=== PATIENT | female | born 1930 | race Caucasian/White ===

== ENCOUNTER 2016-05-28 14:04 | Emergency (ER) | payer MEDICARE, OTHER ==
[2016-05-28 14:12] VITALS: BP 189/81
[2016-05-28] MEDS ORDERED: Sodium Chloride 0.9% 2.5 ML Syringe FLUSH PRN (14:23)
[2016-05-28] MEDS ORDERED: Albuterol/Ipratropium 3.0-0.5 MG/3 ML Neb Soln NEB ONE (14:23)
[2016-05-28] MEDS ORDERED: Sodium Chloride 0.9% 10 ML Syringe FLUSH PRN (14:23)
--- NOTE | 2016-05-28 14:26 | EDM.PDOC ---
ED HISTORY OF PRESENT ILLNESS - General Chief Complaint: Respiratory Problem Stated Complaint: COLD SYMPTOMS Time Seen by Provider: 05/28/16 14:14 - History of Present Illness INITIAL COMMENTS - FREE TEXT/NARRATIVE: HISTORY AND PHYSICAL: History of present illness: The patient is an 85-year-old female who follows in our family practice clinic and presents with a two-day history of productive cough, mostly of clear to white phlegm, and sinus drainage. The patient has a history of COPD and is oxygen dependent using 2-3 L of oxygen regularly. Patient has nebulizer machine at home and uses it regularly as well. She also has a history of congestive heart failure and daughter says she had a "heart attack" in the past but does not have the stents. Patient also has a history of hypertension hypothyroidism. Patient used to smoke cigarettes and quit about 8 years ago and states that she' s been feeling more short of breath with this cough but has not had any chest pain or abdominal pain vomiting or diarrhea. The patient says that when she retains fluid she mostly does it in her legs and she has not noted any swelling of her legs or leg asymmetry. The patient states that she has needed to turn off her oxygen more with activity and this cough over the last 2 days. Patient usually sleeps on one pillow at sleep time and has now gone to 2 pillows and has not been resting comfortably due to the persistent cough. Last evening she slept very poorly because she was coughing all night and could not get comfortable. Patient is eating and drinking normally Review of systems: As per history of present illness and below otherwise all systems reviewed and negative. Past medical history: As per history of present illness and as reviewed below otherwise noncontributory. Surgical history: As per history of present illness and as reviewed below otherwise noncontributory. Social history: No reported history of drug or alcohol abuse. Family history: As per history of present illness and as reviewed below otherwise noncontributory. Physical exam: General: Well-developed well-nourished overweight female who is speaking clearly without breathlessness but has a very harsh cough that is heard in the ER. Her O2 sat on my evaluation was 91% on 4 L. HEENT: Atraumatic, normocephalic, pupils reactive, negative for conjunctival pallor or scleral icterus, mucous membranes moist, throat clear, neck supple, nontender, trachea midline. Lungs: Diminished breath sounds throughout all desouza with scattered wheezing Rales and rhonchi more at the bases left greater than right, there is no accessory muscle use or over work of breathing, breath sounds equal bilaterally , chest nontender. Heart: S1S2, regular, negative for clicks, rubs, or JVD. Abdomen: Soft, nondistended, nontender. Negative for masses or hepatosplenomegaly. NABS Pelvis: Stable nontender. Genitourinary: Deferred. Rectal: Deferred. Extremities: Atraumatic, negative for cords or calf pain. Neurovascular unremarkable. No pedal edema or leg asymmetry Neuro: Awake, alert, oriented. Cranial nerves II through XII unremarkable. Cerebellum unremarkable. Motor and sensory unremarkable throughout. Exam nonfocal. Diagnostics: EKG chest x-ray CBC CMP troponin BNP lactic acid Blood cultures if indicated Therapeutics: Duo neb solumedrol Cefdnir I discussed testing results with the patient and daughter at bedside at length. I offered the patient admission for nebulizer treatments IV steroids and pulmonary toilet and she is refusing this at this time because she has a nebulizer machine at home she has oxygen therapy at home and she is an O2 sat machine at home. She has an appointment tomorrow to see Dr. Bennett and I recommended that she has close followup and keep that appointment. I will give her a dose of Solu-Medrol here and a prescription for home for Solu-Medrol and Cefdnir. I've advised patient on reasons to return to the ED and the daughter says that she is going to be staying with her Impression: COPD exacerbation, bronchitis Definitive disposition and diagnosis as appropriate pending reevaluation and review of above. - Related Data Allergies/ADRs: Allergies Allergy/AdvReac Type Severity Reaction Status Date / Time diazepam [From Valium] Allergy Cannot Verified 05/28/16 14:09 Remember levofloxacin [From Levaquin] Allergy Cannot Verified 05/28/16 14:09 Remember Penicillins Allergy Rash Verified 05/28/16 14:09 Sulfa (Sulfonamide Allergy Cannot Verified 05/28/16 14:09 Antibiotics) Remember contrast dye Allergy Cannot Uncoded 05/28/16 14:09 Remember Home Meds: Home Meds Calcium Carbonate/Vitamin D3 [Os-Mil 500+D] 1 tab PO DAILY 01/10/14 [History] Carvedilol [Coreg] 1 tab PO DAILY 01/10/14 [History] Furosemide [Lasix] 80 mg PO DAILY 01/10/14 [History] Levothyroxine Sodium 137 mcg PO DAILY 01/10/14 [History] Losartan Potassium 25 mg PO DAILY 01/10/14 [History] Multivitamin,Stress Formula [Stress Formula] 1 tab PO DAILY 01/10/14 [History] Potassium Chloride 8 meq PO DAILY 01/10/14 [History] Albuterol [Ventolin HFA] 2 inh INH DAILY 05/28/16 [History] Albuterol/Ipratropium [DuoNeb 3.0-0.5 MG/3 ML] 1 ampule INH BID 05/28/16 [ History] Aspirin 1 tab PO DAILY 05/28/16 [History] Past Medical History HEENT History: Reports: Cataract, Impaired vision Cardiovascular History: Reports: Heart Failure Respiratory History: Reports: COPD Gastrointestinal History: Reports: None Genitourinary History: Reports: Renal calculus Musculoskeletal History: Reports: None Psychiatric History: Reports: None Endocrine/Metabolic History: Reports: None Dermatologic History: Reports: None - Past Surgical History HEENT Surgical History: Reports: Cataract surgery GI Surgical History: Reports: Appendectomy, Cholecystectomy Female Surgical History: Reports: None Musculoskeletal Surgical History: Reports: None Social & Family History - Tobacco Use Smoking Status *Q: Former Smoker Years of Tobacco use: 40 Used Tobacco, but Quit: Yes Month Tobacco Last Used: august Second Hand Smoke Exposure: No - Alcohol Use Days Per Week of Alcohol Use: 0 - Recreational Drug Use Recreational Drug Use: No ED ROS GENERAL - Review of Systems Review Of Systems: ROS reveals no pertinent complaints other than HPI. ED EXAM, GENERAL - Physical Exam Exam: See Below (see dictation) Course - Vital Signs Last Recorded V/S: Last Vital Signs Temp 36.6 C 05/28/16 14:10 Pulse 100 05/28/16 14:10 Resp 20 05/28/16 14:10 BP 189/81 H 05/28/16 14:10 Pulse Ox 93 L 05/28/16 14:10 - Orders/Labs/Meds Orders: Active Orders 24 hr Category Date Time Status Cardiac Monitoring [RC] . DIRECTED Care 05/28/16 14:22 Active EKG Documentation Completion [RC] STAT Care 05/28/16 14:22 Active Oxygen Therapy, ED [RC] ASDIRECTED Care 05/28/16 14:22 Active Pulse Oximetry [RC] ASDIRECTED Care 05/28/16 14:22 Active RT Aerosol Therapy [RC] ASDIRECTED Care 05/28/16 14:23 Active Chest 2V [CR] Stat Exams 05/28/16 14:23 Taken Sodium Chloride 0.9% [Saline Flush] Med 05/28/16 14:23 Active 10 ml FLUSH ASDIRECTED PRN Sodium Chloride 0.9% [Saline Flush] Med 05/28/16 14:23 Active 2.5 ml FLUSH ASDIRECTED PRN methylPREDNISolone Sod Succ [Solu-MEDROL] Med 05/28/16 16:01 Once 125 mg IVPUSH ONETIME ONE Saline Lock Insert [OM.PC] Stat Oth 05/28/16 14:22 Ordered Medication Orders Sodium Chloride (Saline Flush) 10 ml FLUSH ASDIRECTED PRN PRN Reason: Keep Vein Open Sodium Chloride (Saline Flush) 2.5 ml FLUSH ASDIRECTED PRN PRN Reason: Keep Vein Open Labs: Laboratory Tests 05/28/16 05/28/16 05/28/16 Range/Units 14:31 14:31 14:31 WBC 4.37 (4.0-11.0) K/uL RBC 4.14 L (4.30-5.90) M/uL Hgb 12.9 (12.0-16.0) g/dL Hct 42.9 (36.0-46.0) % MCV 103.6 H (80.0-98.0) fL MCH 31.2 (27.0-32.0) pg MCHC 30.1 L (31.0-37.0) g/dL RDW Std Deviation 55.0 (28.0-62.0) fl RDW Coeff of Jelly 14 (11.0-15.0) % Plt Count 170 (150-400) K/uL MPV 9.90 (7.40-12.00) fL Neut % (Auto) 68.4 (48.0-80.0) % Lymph % (Auto) 13.5 L (16.0-40.0) % [place] % (Auto) 14.4 (0.0-15.0) % Eos % (Auto) 3.2 (0.0-7.0) % Baso % (Auto) 0.5 (0.0-1.5) % Neut # 3.0 (1.4-5.7) K/uL Lymph # 0.6 (0.6-2.4) K/uL [place] # 0.6 (0.0-0.8) K/uL Eos # 0.1 (0.0-0.7) K/uL Baso # 0.0 (0.0-0.1) K/uL Nucleated RBC % 0.0 /100WBC Nucleated RBCs # 0 K/uL Lactate 0.8 (0.20-2.00) mmol/L Sodium 141 (136-146) mmol/L Potassium 4.3 (3.5-5.1) mmol/L Chloride 98 (98-110) mmol/L Carbon Dioxide 32 H (21-31) mmol/L BUN 35 H (6.0-23.0) mg/dL Creatinine 1.2 (0.6-1.5) mg/dL Est Cr Clr Drug Dosing 31.96 mL/min Estimated GFR (MDRD) 42.9 ml/min Glucose 87 (60-110) mg/dL Calcium 9.2 (8.8-10.8) mg/dL Total Bilirubin 0.4 (0.1-1.5) mg/dL AST 22 (5-40) IU/L ALT 15 (8-54) IU/L Alkaline Phosphatase 70 (40-150) Troponin I (0.0-0.29) NG/ML B-Natriuretic Peptide (<100) PG/ML Total Protein 7.1 (6.0-8.0) g/dL Albumin 3.9 (3.4-4.8) g/dL Globulin 3.2 (2.0-3.5) g/dL Albumin/Globulin Ratio 1.2 L (1.3-2.8) 05/28/16 05/28/16 Range/Units 14:31 14:31 WBC (4.0-11.0) K/uL RBC (4.30-5.90) M/uL Hgb (12.0-16.0) g/dL Hct (36.0-46.0) % MCV (80.0-98.0) fL MCH (27.0-32.0) pg MCHC (31.0-37.0) g/dL RDW Std Deviation (28.0-62.0) fl RDW Coeff of Jelly (11.0-15.0) % Plt Count (150-400) K/uL MPV (7.40-12.00) fL Neut % (Auto) (48.0-80.0) % Lymph % (Auto) (16.0-40.0) % [place] % (Auto) (0.0-15.0) % Eos % (Auto) (0.0-7.0) % Baso % (Auto) (0.0-1.5) % Neut # (1.4-5.7) K/uL Lymph # (0.6-2.4) K/uL [place] # (0.0-0.8) K/uL Eos # (0.0-0.7) K/uL Baso # (0.0-0.1) K/uL Nucleated RBC % /100WBC Nucleated RBCs # K/uL Lactate (0.20-2.00) mmol/L Sodium (136-146) mmol/L Potassium (3.5-5.1) mmol/L Chloride (98-110) mmol/L Carbon Dioxide (21-31) mmol/L BUN (6.0-23.0) mg/dL Creatinine (0.6-1.5) mg/dL Est Cr Clr Drug Dosing mL/min Estimated GFR (MDRD) ml/min Glucose (60-110) mg/dL Calcium (8.8-10.8) mg/dL Total Bilirubin (0.1-1.5) mg/dL AST (5-40) IU/L ALT (8-54) IU/L Alkaline Phosphatase (40-150) Troponin I < 0.10 (0.0-0.29) NG/ML B-Natriuretic Peptide 245 H (<100) PG/ML Total Protein (6.0-8.0) g/dL Albumin (3.4-4.8) g/dL Globulin (2.0-3.5) g/dL Albumin/Globulin Ratio (1.3-2.8) Meds: Medications Generic Name Dose Route Start Last Admin Trade Name Freq PRN Reason Stop Dose Admin Sodium Chloride 10 ml 05/28/16 14:23 Saline Flush FLUSH ASDIRECTED PRN Keep Vein Open Sodium Chloride 2.5 ml 05/28/16 14:23 Saline Flush FLUSH ASDIRECTED PRN Keep Vein Open Discontinued Medications Generic Name Dose Route Start Last Admin Trade Name Freq PRN Reason Stop Dose Admin Albuterol/Ipratropium 3 ml 05/28/16 14:23 05/28/16 14:40 Duoneb 3.0-0.5 Mg/3 Ml NEB 05/28/16 14:24 3 ml ONETIME ONE Administration Departure - Departure Time of Disposition: 16:05 Disposition: Home, Self-Care 01 Condition: good Clinical Impression: COPD exacerbation, Bronchitis Forms: ED Department Discharge Additional Instructions: The following information is given to patients seen in the emergency department who are being discharged to home. This information is to outline your options for follow-up care. We provide all patients seen in our emergency department with a follow-up referral. The need for follow-up, as well as the timing and circumstances, are variable depending upon the specifics of your emergency department visit. If you don't have a primary care physician on staff, we will provide you with a referral. We always advise you to contact your personal physician following an emergency department visit to inform them of the circumstance of the visit and for follow-up with them and/or the need for any referrals to a consulting specialist. The emergency department will also refer you to a specialist when appropriate. This referral assures that you have the opportunity for followup care with a specialist. All of these measure are taken in an effort to provide you with optimal care, which includes your followup. Under all circumstances we always encourage you to contact your private physician who remains a resource for coordinating your care. When calling for followup care, please make the office aware that this follow-up is from your recent emergency room visit. If for any reason you are refused follow-up, please contact the [facility] emergency department at and ask to speak to the emergency department charge nurse. [facility] Primary care- Internal Medicine and Family [address] [address] Please keep your appointment tomorrow with Dr. Bennett and increased her nebulizer treatments q. 4 times a day for the next several days. Please take prednisone as prescribed and antibiotics. Please increase her oxygen as you need to and return to ER as needed and as discussed - My Orders Last 24 Hours: My Active Orders 05/28/16 14:22 Cardiac Monitoring [RC] . DIRECTED EKG Documentation Completion [RC] STAT Oxygen Therapy, ED [RC] ASDIRECTED Pulse Oximetry [RC] ASDIRECTED Saline Lock Insert [OM.PC] Stat 05/28/16 14:23 RT Aerosol Therapy [RC] ASDIRECTED Chest 2V [CR] Stat Sodium Chloride 0.9% [Saline Flush] 10 ml FLUSH ASDIRECTED PRN Sodium Chloride 0.9% [Saline Flush] 2.5 ml FLUSH ASDIRECTED PRN 05/28/16 16:01 methylPREDNISolone Sod Succ [Solu-MEDROL] 125 mg IVPUSH ONETIME ONE - Assessment/Plan Last 24 Hours: My Active Orders 05/28/16 14:22 Cardiac Monitoring [RC] . DIRECTED EKG Documentation Completion [RC] STAT Oxygen Therapy, ED [RC] ASDIRECTED Pulse Oximetry [RC] ASDIRECTED Saline Lock Insert [OM.PC] Stat 05/28/16 14:23 RT Aerosol Therapy [RC] ASDIRECTED Chest 2V [CR] Stat Sodium Chloride 0.9% [Saline Flush] 10 ml FLUSH ASDIRECTED PRN Sodium Chloride 0.9% [Saline Flush] 2.5 ml FLUSH ASDIRECTED PRN 05/28/16 16:01 methylPREDNISolone Sod Succ [Solu-MEDROL] 125 mg IVPUSH ONETIME ONE
[2016-05-28] MEDS ORDERED: methylPREDNISolone Sodium Succinate 125 MG/2 ML SDV IVPUSH ONE (16:01)
[2016-05-28] MEDS ORDERED: Cefdinir 300 MG Cap PO ONE (16:07)
--- NOTE | 2016-05-29 19:32 | CR ---
MEXAM DATE: 05/28/16 PATIENT'S AGE: 85 Patient: DONA VALERA Facility: [place], [place] Site . Site : [id number] Study: XRay Chest [id number] 3:21:59 PM Ordering Physician: Jordan Moran Final Report: INDICATION: Chest pain; cough; shortness of breath. Comparison: chest radiograph March 27, 2016. Technique: Two-view chest. Findings: Stable cardiomegaly. Bibasilar infiltrates stable in appearance. No evidence of CHF. No pneumothorax or pleural effusion. Impression: 1. Bibasilar infiltrates; no interval change. 2. Stable cardiomegaly. Dictated by Ant Mueller MD @ May 28 2016 3:36PM (Electronic Signature) Report Signed by Proxy and Original Signed Document filed in the Medical Record. [email or web address]
== END 2016-05-28 16:30 | disposition home or self-care (01) ==
LOC: MW.ED 14:04
DX: J44.1 Chronic obstructive pulmonary disease with (acute) exacerbation (principal); J40 Bronchitis, not specified as acute or chronic; I50.9 Heart failure, unspecified; Z88.0 Allergy status to penicillin; Z88.1 Allergy status to other antibiotic agents; Z88.2 Allergy status to sulfonamides; Z88.5 Allergy status to narcotic agent; Z91.041 Radiographic dye allergy status; Z79.899 Other long term (current) drug therapy; Z90.49 Acquired absence of other specified parts of digestive tract; Z98.49 Cataract extraction status, unspecified eye; Z87.891 Personal history of nicotine dependence
CPT/HCPCS: 36415; 71020; 80053; 83605; 83880; 84484; 85025; 93005; 94664; 96374; 99284; A9270; J2930

== ENCOUNTER → 2016-05-29 | Outpatient (CLI) | payer MEDICARE, OTHER | LOC: MW.CHFP 08:00 | PROVIDERS: ATTEND Student in an Organized Health Care Education/Training Program | DX: J44.1 Chronic obstructive pulmonary disease with (acute) exacerbation (principal) | CPT/HCPCS: G0463 ==

== ENCOUNTER 2016-06-02 14:35 | Inpatient (IN) | payer MEDICARE, OTHER ==
--- NOTE | 2016-06-02 16:11 | CR ---
EXAMINATION: Two-view chest (PA and Lateral views). HISTORY: Cough, femur. FINDINGS: The trachea is midline. The heart is borderline in size. There are increased infiltrates noted withi n the lung bases on the lateral image, a trace pleural effusion is not excluded. Stable interstitial prominence. Aortic calcifications are noted. Osseous structures appear osteopenic. IMPRESSION: Bibasilar atelectasis and/or infiltrate.
[2016-06-02] MEDS ORDERED: Ondansetron 4 MG Tab.DIS PO PRN (16:59)
[2016-06-02] MEDS ORDERED: oxyCODONE 5 MG Tab PO PRN (16:59)
[2016-06-02] MEDS ORDERED: Acetaminophen 325 MG Tab PO PRN (16:59)
[2016-06-02] MEDS ORDERED: Furosemide 40 MG/4 ML VIAL IVPUSH ONE (17:13)
[2016-06-02] MEDS ORDERED: Calcium Carbonate 500 MG Tab.Chew PO ONE (17:14)
[2016-06-02] MEDS ORDERED: Levofloxacin/Dextrose 5%-Water 750 MG in Premix Bag 1 BAG IV SCH (17:30)
--- NOTE | 2016-06-02 17:54 | PCM.HP ---
H&P History of Present Illness - General Date of Service: 06/02/16 Admit Problem/Dx: Admission Diagnosis/Problem Admission Diagnosis/Problem Pneumonia Source of Information: Patient, Family History Limitations: Reports: No limitations - History of Present Illness Initial Comments - Free Text/Narative: 85 yo female admitted directly from Dr. Bennett clinic on 06/02/16 for hypoxia, influenza B positive, suspected pneumonia with pmh of COPD on home oxygen, ischemic cardiomyopathy, [place] no stents, CHF, Htn, hypothyroid, hyperlipidemia and gout. Patient states that she initially started to feel sick on Sunday05/27/16 with her first symptoms being cough and some shortness of breath. She went to the emergency department on Sunday 05/28 and was given a dose of Solu-Medrol and Cefdnir. Patient denied admission at that time for COPD exacerbation and wanted to follow-up with Dr. Bennett on Sunday for her regular appointment. Patient saw Dr. Bennett on Sunday and instructed her to continue the ED instructions and return to clinic on Sunday06/01/16 if she was not doing better. Patient states that she used her home nebulizer and took the Cefdnir but it caused urinary retention even with her home lasix. Her cough and congestion became worse over the week so she scheduled to see Dr. Bennett today. In clinic patient was found to be hypoxic 88% on 3L of oxygen. CXR showed bibasilar atelectasis and/or infiltrate. Patient also tested positive for influenza B. Patient also noted some hematuria so UA and UC were collected. Secondary to hypoxia and suspected pneumonia Dr. Bennett felt patient needed hospitalization for treatement. Patient was afebrile but tachycardic, there was no leukocytosis but BUN and Cr were elevated to 53 and 1.9 respectively. UA was negative for infection but did show large occult blood. Patient was directly admitted for hypoxia, suspected pneumonia, influenza B, suspected COPD exacerbation and mild CHF exacerbation. - Related Data Allergies/Adverse Reactions: Allergies Allergy/AdvReac Type Severity Reaction Status Date / Time diazepam [From Valium] Allergy Cannot Verified 05/28/16 14:09 Remember levofloxacin [From Levaquin] Allergy Cannot Verified 05/28/16 14:09 Remember Penicillins Allergy Rash Verified 05/28/16 14:09 Sulfa (Sulfonamide Allergy Cannot Verified 05/28/16 14:09 Antibiotics) Remember contrast dye Allergy Cannot Uncoded 05/28/16 14:09 Remember Home Medications: Home Meds Calcium Carbonate/Vitamin D3 [Os-Mil 500+D] 1 tab PO DAILY 01/10/14 [History] Carvedilol [Coreg] 1 tab PO DAILY 01/10/14 [History] Furosemide [Lasix] 80 mg PO DAILY 01/10/14 [History] Levothyroxine Sodium 137 mcg PO DAILY 01/10/14 [History] Losartan Potassium 25 mg PO DAILY 01/10/14 [History] Multivitamin,Stress Formula [Stress Formula] 1 tab PO DAILY 01/10/14 [History] Potassium Chloride 8 meq PO DAILY 01/10/14 [History] Albuterol [Ventolin HFA] 2 inh INH DAILY 05/28/16 [History] Albuterol/Ipratropium [DuoNeb 3.0-0.5 MG/3 ML] 1 ampule INH BID 05/28/16 [ History] Aspirin 1 tab PO DAILY 05/28/16 [History] Past Medical History HEENT History: Reports: Cataract, Impaired vision Cardiovascular History: Reports: Heart Failure Respiratory History: Reports: COPD Gastrointestinal History: Reports: None Genitourinary History: Reports: Renal calculus [employer] History: Reports: Musculoskeletal History: Reports: None Psychiatric History: Reports: None Endocrine/Metabolic History: Reports: None Dermatologic History: Reports: None - Past Surgical History HEENT Surgical History: Reports: Cataract surgery GI Surgical History: Reports: Appendectomy, Cholecystectomy Female Surgical History: Reports: None Musculoskeletal Surgical History: Reports: None Social & Family History - Family History Family Medical History: Noncontributory - Tobacco Use Smoking Status *Q: Former Smoker Years of Tobacco use: 40 Used Tobacco, but Quit: Yes Month Tobacco Last Used: august Second Hand Smoke Exposure: No - Caffeine Use Caffeine Use: Reports: Coffee - Alcohol Use Days Per Week of Alcohol Use: 0 - Recreational Drug Use Recreational Drug Use: No H&P Review of Systems - Review of Systems: Review Of Systems: See Below General: Reports: chills, malaise, weakness, fatigue. Denies: fever HEENT: Reports: rhinitis, sinus congestion. Denies: sore throat Pulmonary: Reports: Shortness of Breath, Wheezing, Cough, Sputum. Denies: Hemoptysis Cardiovascular: Reports: edema. Denies: chest pain, palpitations Gastrointestinal: Reports: Diarrhea. Denies: Abdominal pain, Constipation, Hematochezia, Melena Genitourinary: Reports: hematuria. Denies: dysuria Musculoskeletal: Denies: neck pain, leg pain Skin: Denies: cyanosis, rash Psychiatric: Denies: confusion Neurological: Denies: Confusion, Dizziness Hematologic/Lymphatic: Reports: anemia Exam - Exam Exam: See Below - Vital Signs Vital Signs: Last Vital Signs Temp 37.3 C 06/02/16 16:48 Pulse 105 H 06/02/16 16:48 Resp 22 H 06/02/16 16:48 BP 139/63 06/02/16 16:48 Pulse Ox 91 L 06/02/16 17:05 Weight: 86.545 kg - Exam Quality Assessment: supplemental oxygen, DVT prophylaxis General: alert, oriented, cooperative HEENT: Conjunctiva clear, EACs clear, EOMI, Hearing intact, Mucosa moist & pink , Nares patent, Normal nasal septum, Posterior pharynx clear, PERRLA Neck: supple, trachea midline, 2 Lungs: Normal respiratory effort, Decreased breath sounds, Crackles, Rales, Wheezing Cardiovascular: regular rate, regular rhythm, normal S1, normal S2 Abdomen: normal bowel sounds, soft. No: guarding, rigidity, rebound, tenderness Back Exam: normal inspection Extremities: edema (+2 pitting edema to 2 inches above ankles). No: calf tenderness Peripheral Pulses: 2+: radial (L), radial (R), posterior tibial (L), posterior tibial (R), dorsalis pedis (L), dorsalis pedis (R) Skin: warm, dry, intact Neurological: cranial nerves intact Neuro Extensive - Mental Status: alert, oriented x3, normal mood/affect, normal cognition Psychiatric: alert, normal affect, normal mood - Patient Data Lab Results last 24 hrs: Laboratory Results - last 24 hr 06/02/16 06/02/16 06/02/16 Range/Units 15:02 15:02 15:02 WBC 7.46 (4.0-11.0) K/uL RBC 4.00 L (4.30-5.90) M/uL Hgb 12.3 (12.0-16.0) g/dL Hct 40.8 (36.0-46.0) % MCV 102.0 H (80.0-98.0) fL MCH 30.8 (27.0-32.0) pg MCHC 30.1 L (31.0-37.0) g/dL RDW Std Deviation 53.9 (28.0-62.0) fl RDW Coeff of Jelly 14 (11.0-15.0) % Plt Count 152 (150-400) K/uL MPV 9.80 (7.40-12.00) fL Neut % (Auto) 83.0 H (48.0-80.0) % Lymph % (Auto) 7.8 L (16.0-40.0) % [place] % (Auto) 9.0 (0.0-15.0) % Eos % (Auto) 0.1 (0.0-7.0) % Baso % (Auto) 0.1 (0.0-1.5) % Neut # (Auto) 6.2 H (1.4-5.7) K/uL Lymph # (Auto) 0.6 (0.6-2.4) K/uL [place] # (Auto) 0.7 (0.0-0.8) K/uL Eos # (Auto) 0.0 (0.0-0.7) K/uL Baso # (Auto) 0.0 (0.0-0.1) K/uL Nucleated RBC % 0.0 /100WBC Nucleated RBCs # 0 K/uL Sodium 138 (136-146) mmol/L Potassium 4.4 (3.5-5.1) mmol/L Chloride 94 L (98-110) mmol/L Carbon Dioxide 31 (21-31) mmol/L BUN 53 H (6.0-23.0) mg/dL Creatinine 1.9 H (0.6-1.5) mg/dL Est Cr Clr Drug Dosing 20.19 mL/min Estimated GFR (MDRD) 25.2 ml/min Glucose 106 (60-110) mg/dL Calcium 8.3 L (8.8-10.8) mg/dL Urine Color YELLOW Urine Appearance SLT CLOUDY Urine pH 5.0 (5.0-8.0) Ur Specific [place] 1.010 (1.001-1.035) Urine Protein TRACE (NEGATIVE) mg/dL Urine Glucose (UA) NEGATIVE (NEGATIVE) mg/dL Urine Ketones NEGATIVE (NEGATIVE) mg/dL Urine Occult Blood LARGE H (NEGATIVE) Urine Nitrite NEGATIVE (NEGATIVE) Urine Bilirubin NEGATIVE (NEGATIVE) Urine Urobilinogen 0.2 (<2.0) EU/dL Ur Leukocyte Esterase NEGATIVE (NEGATIVE) Urine RBC 80-100 (0-2/HPF) Urine WBC 0-2 (0-5/HPF) Ur Epithelial Cells RARE (NONE-FEW) Urine Bacteria RARE (NEGATIVE) Result Diagrams: 06/02/16 15:02 06/02/16 15:02 Luis Results last 24 hrs: Microbiology 06/02/16 14:47 Influenza Type A Antigen Screen - Final Nasopharyngeal Swab NEGATIVE INFLUENZA A VIRUS AG Influenza Type B Antigen Screen - Final Positive Influenza B Ag *Q Meaningful Use (ADM) - VTE *Q VTE Criteria *Q: - Stroke *Q Stroke Criteria *Q: - AMI *Q AMI Criteria *Q: - Problem List (1) Pneumonia SNOMED Code(s): 341122832 ICD Code: J18.9 - PNEUMONIA, UNSPECIFIED ORGANISM Status: Acute Priority : High Current Visit: Yes Qualifiers: Pneumonia type: due to unspecified organism Laterality: left Lung location: lower lobe of lung Qualified Code(s): J18.1 - Lobar pneumonia, unspecified organism (2) Influenza B SNOMED Code(s): 93711830 ICD Code: J10.1 - FLU DUE TO OTH IDENT INFLUENZA VIRUS W OTH RESP MANIFEST Status: Acute Priority: High Current Visit: Yes (3) Acute renal failure SNOMED Code(s): 27804861 ICD Code: N17.9 - ACUTE KIDNEY FAILURE, UNSPECIFIED Status: Acute Priority: High Current Visit: Yes Qualifiers: Acute renal failure type: unspecified Qualified Code(s): N17.9 - Acute kidney failure, unspecified (4) CHF (congestive heart failure) SNOMED Code(s): 79451746 ICD Code: I50.9 - HEART FAILURE, UNSPECIFIED Status: Chronic Priority: Medium Current Visit: Yes Qualifiers: Congestive heart failure type: unspecified congestive heart failure type Congestive heart failure chronicity: acute on chronic Qualified Code(s): I50.9 - Heart failure, unspecified (5) COPD (chronic obstructive pulmonary disease) with emphysema SNOMED Code(s): 50920372 ICD Code: J43.9 - EMPHYSEMA, UNSPECIFIED Status: Chronic Priority: High Current Visit: Yes Qualifiers: Emphysema type: unspecified Qualified Code(s): J43.9 - Emphysema, unspecified (6) Hypothyroid SNOMED Code(s): 77966233 ICD Code: E03.9 - HYPOTHYROIDISM, UNSPECIFIED Status: Chronic Priority: Medium Current Visit: Yes Qualifiers: Hypothyroidism type: unspecified Qualified Code(s): E03.9 - Hypothyroidism , unspecified Problem List Initiated/Reviewed/Updated: Yes Orders Last 24hrs: Active Orders 24 hr Category Date Time Status Patient Status [ADT] Routine ADT 06/02/16 16:59 Active Antiembolic Devices [RC] Q4H Care 06/02/16 17:06 Active Blood Glucose Check, Bedside [RC] TIDAC Care 06/02/16 16:59 Inactive Daily Weight [Height and Weight] [RC] DAILY Care 06/02/16 17:12 Active Oxygen Therapy [RC] PRN Care 06/02/16 16:59 Active Pulse Oximetry [RC] CONTINUOUS Care 06/02/16 17:05 Active RT Aerosol Therapy [RC] ASDIRECTED Care 06/02/16 17:07 Active Up With Assistance [RC] ASDIRECTED Care 06/02/16 16:59 Active VTE/DVT Education [RC] PER UNIT ROUTINE Care 06/02/16 16:59 Active Vital Signs [RC] Q4H Care 06/02/16 16:59 Active Heart Healthy Diet [DIET] Diet 06/02/16 Dinner Active BASIC METABOLIC PANEL,BMP [CHEM] DAILY Lab 06/04/16 05:00 Ordered BASIC METABOLIC PANEL,BMP [CHEM] DAILY Lab 06/05/16 05:00 Ordered BASIC METABOLIC PANEL,BMP [CHEM] DAILY Lab 06/06/16 05:00 Ordered BASIC METABOLIC PANEL,BMP [CHEM] DAILY Lab 06/07/16 05:00 Ordered CBC WITH AUTO DIFF [HEME] DAILY Lab 06/03/16 05:00 Ordered CBC WITH AUTO DIFF [HEME] DAILY Lab 06/04/16 05:00 Ordered CBC WITH AUTO DIFF [HEME] DAILY Lab 06/05/16 05:00 Ordered CBC WITH AUTO DIFF [HEME] DAILY Lab 06/06/16 05:00 Ordered CBC WITH AUTO DIFF [HEME] DAILY Lab 06/07/16 05:00 Ordered COMPREHENSIVE METABOLIC PN,CMP [CHEM] AM Lab 06/03/16 05:11 Ordered CULTURE BLOOD [BC] Stat Lab 06/02/16 17:18 Ordered CULTURE BLOOD [BC] Stat Lab 06/02/16 17:18 Ordered CULTURE SPUTUM + SMEAR [RM] Routine Lab 06/02/16 16:58 Uncollected CULTURE URINE [RM] Routine Lab 06/02/16 15:02 Received MAGNESIUM [CHEM] AM Lab 06/03/16 05:11 Ordered PHOSPHORUS [CHEM] AM Lab 06/03/16 05:11 Ordered Acetaminophen [Tylenol] Med 06/02/16 16:59 Active 650 mg PO Q4H PRN Albuterol/Ipratropium [DuoNeb 3.0-0.5 MG/3 ML] Med 06/02/16 16:59 Active 3 ml NEB Q4HRRT PRN Heparin Sodium Med 06/02/16 17:00 Active 5,000 units SUBCUT Q12H Levofloxacin/Dextrose 5%-Water [Levaquin in D5W 750 MG/ Med 06/02/16 17:30 Active 150 ML] 750 mg Premix Bag 1 bag IV Q24H Ondansetron [Zofran ODT] Med 06/02/16 16:59 Active 4 mg PO Q4H PRN Oseltamivir [Tamiflu] Med 06/02/16 17:00 Active 75 mg PO BID methylPREDNISolone Sod Succ [Solu-MEDROL] Med 06/02/16 17:00 Active 125 mg IVPUSH Q8H oxyCODONE Med 06/02/16 16:59 Active 5 mg PO Q4H PRN Blood Culture x2 Reflex Set [OM.PC] Stat Oth 06/02/16 17:17 Ordered Sequential Compression Device [OM.PC] Per Unit Routine Oth 06/02/16 17:05 Ordered Resuscitation Status Routine Resus Stat 06/02/16 16:59 Ordered Medication Orders Acetaminophen (Tylenol) 650 mg PO Q4H PRN PRN Reason: Pain (Mild 1-3)/fever Albuterol/Ipratropium (Duoneb 3.0-0.5 Mg/3 Ml) 3 ml NEB Q4HRRT PRN PRN Reason: Shortness Of Breath/wheezing Heparin Sodium (Porcine) (Heparin Sodium) 5,000 units SUBCUT Q12H [facility] Levofloxacin/Dextrose 750 mg/ (Premix) 150 mls @ 100 mls/hr IV Q24H [facility] Methylprednisolone Sodium Succinate (Solu-Medrol) 125 mg IVPUSH Q8H [facility] Ondansetron HCl (Zofran Odt) 4 mg PO Q4H PRN PRN Reason: nausea, able to take PO Oseltamivir Phosphate (Tamiflu) 75 mg PO BID [facility] Oxycodone HCl (Oxycodone) 5 mg PO Q4H PRN PRN Reason: Pain (moderate 4-6) Assessment/Plan Comment:: 85 yo female admitted 06/02/16 for hypoxia secondary to suspected pneumonia vs CHF exacerbation and influenza B with pmh of COPD oxygen dependent, CHF, Htn, ischemic cardiomyopathy and hypothyroid. Hypoxia: Looking at CXR this looks to be more of a CHF exacerbation vs pneumonia but with history will empirically treat for CAP with Levaquin and get sputum culture. There is no leukocytosis or fever. She is O2 dependent on 3L at home and is sating 91 % on 4 L on exam. Will give 40 Lasix IV now and monitor daily weights as I believe patient is volume overloaded at this time. Influenza B: Positive will give Tamiflu today 75 mg PO BID x 5 days. CHF: As above on exam seems volume overloaded. Home Lasix is 80 mg PO q day. Will give 40 Lasix now and plan for 40 IV BID monitoring daily weights. COPD: Some exacerbation secondary to flu. Exam diffuse decrease breath sounds. Start duo-nebs and Solumedrol. Bedside spirometry and flutter valve. Hypothyroid: Stable restart home meds. Hematuria: UA negative culture pending. VTE: Heparin and SCD.
[2016-06-02] MEDS: Oseltamivir 75 MG Cap PO SCH ×2 (18:03→22:04)
[2016-06-02] MEDS: methylPREDNISolone Sodium Succinate 125 MG/2 ML SDV IVPUSH SCH (18:04)
[2016-06-02] MEDS: Heparin Sodium 5,000 Units/ML Vial SUBCUT SCH (18:05)
[2016-06-02] MEDS: Albuterol/Ipratropium 3.0-0.5 MG/3 ML Neb Soln NEB PRN ×2 (18:31→21:18)
[2016-06-02] MEDS: cefTRIAXone 1 GM in Premix Bag 1 BAG IV SCH (19:10)
[2016-06-02] MEDS: Azithromycin 500 MG in Sodium Chloride 0.9% 250 ML IV SCH (20:00)
[2016-06-03] MEDS: methylPREDNISolone Sodium Succinate 125 MG/2 ML SDV IVPUSH SCH ×3 (00:56→16:22)
[2016-06-03] MEDS: Albuterol/Ipratropium 3.0-0.5 MG/3 ML Neb Soln NEB PRN ×4 (01:08→21:02)
[2016-06-03] MEDS: Heparin Sodium 5,000 Units/ML Vial SUBCUT SCH (05:11)
[2016-06-03 06:46] LABS: CHLORIDE,CL 96 mmol/L (98-110); SODIUM,NA 138 mmol/L (136-146)
[2016-06-03] MEDS ORDERED: Furosemide 40 MG/4 ML VIAL IVPUSH SCH (08:00)
[2016-06-03] MEDS: Oseltamivir 75 MG Cap PO SCH (09:31)
--- NOTE | 2016-06-03 14:18 | PCM.PN ---
- General Info Date of Service: 06/03/16 Admission Dx/Problem (Free Text): she is feeling improved. - Patient Data Vitals - most recent: Last Vital Signs Temp 98.7 F 06/03/16 11:42 Pulse 107 H 06/03/16 11:42 Resp 18 06/03/16 11:42 BP 135/62 06/03/16 11:42 Pulse Ox 90 L 06/03/16 11:42 Weight - most recent: 87.5 kg I&O - last 24 hours: Intake & Output 06/02/16 06/03/16 06/03/16 22:59 06:59 14:59 Intake Total 450 300 Output Total 1400 Balance 450 -1100 Lab Results last 24 hrs: Laboratory Results - last 24 hr 06/02/16 06/02/16 06/02/16 Range/Units 15:02 15:02 15:02 WBC 7.46 (4.0-11.0) K/uL RBC 4.00 L (4.30-5.90) M/uL Hgb 12.3 (12.0-16.0) g/dL Hct 40.8 (36.0-46.0) % MCV 102.0 H (80.0-98.0) fL MCH 30.8 (27.0-32.0) pg MCHC 30.1 L (31.0-37.0) g/dL RDW Std Deviation 53.9 (28.0-62.0) fl RDW Coeff of Jelly 14 (11.0-15.0) % Plt Count 152 (150-400) K/uL MPV 9.80 (7.40-12.00) fL Neut % (Auto) 83.0 H (48.0-80.0) % Lymph % (Auto) 7.8 L (16.0-40.0) % [place] % (Auto) 9.0 (0.0-15.0) % Eos % (Auto) 0.1 (0.0-7.0) % Baso % (Auto) 0.1 (0.0-1.5) % Neut # (Auto) 6.2 H (1.4-5.7) K/uL Lymph # (Auto) 0.6 (0.6-2.4) K/uL [place] # (Auto) 0.7 (0.0-0.8) K/uL Eos # (Auto) 0.0 (0.0-0.7) K/uL Baso # (Auto) 0.0 (0.0-0.1) K/uL Nucleated RBC % 0.0 /100WBC Nucleated RBCs # 0 K/uL Sodium 138 (136-146) mmol/L Potassium 4.4 (3.5-5.1) mmol/L Chloride 94 L (98-110) mmol/L Carbon Dioxide 31 (21-31) mmol/L BUN 53 H (6.0-23.0) mg/dL Creatinine 1.9 H (0.6-1.5) mg/dL Est Cr Clr Drug Dosing 20.19 mL/min Estimated GFR (MDRD) 25.2 ml/min Glucose 106 (60-110) mg/dL Calcium 8.3 L (8.8-10.8) mg/dL Phosphorus (2.4-4.7) mg/dL Magnesium (1.5-2.3) mEq/L Total Bilirubin (0.1-1.5) mg/dL AST (5-40) IU/L ALT (8-54) IU/L Alkaline Phosphatase (40-150) Total Protein (6.0-8.0) g/dL Albumin (3.4-4.8) g/dL Globulin (2.0-3.5) g/dL Albumin/Globulin Ratio (1.3-2.8) Urine Color YELLOW Urine Appearance SLT CLOUDY Urine pH 5.0 (5.0-8.0) Ur Specific [place] 1.010 (1.001-1.035) Urine Protein TRACE (NEGATIVE) mg/dL Urine Glucose (UA) NEGATIVE (NEGATIVE) mg/dL Urine Ketones NEGATIVE (NEGATIVE) mg/dL Urine Occult Blood LARGE H (NEGATIVE) Urine Nitrite NEGATIVE (NEGATIVE) Urine Bilirubin NEGATIVE (NEGATIVE) Urine Urobilinogen 0.2 (<2.0) EU/dL Ur Leukocyte Esterase NEGATIVE (NEGATIVE) Urine RBC 80-100 (0-2/HPF) Urine WBC 0-2 (0-5/HPF) Ur Epithelial Cells RARE (NONE-FEW) Urine Bacteria RARE (NEGATIVE) 06/03/16 06/03/16 Range/Units 06:05 06:05 WBC 5.65 (4.0-11.0) K/uL RBC 3.75 L (4.30-5.90) M/uL Hgb 11.5 L (12.0-16.0) g/dL Hct 37.9 (36.0-46.0) % MCV 101.1 H (80.0-98.0) fL MCH 30.7 (27.0-32.0) pg MCHC 30.3 L (31.0-37.0) g/dL RDW Std Deviation 52.6 (28.0-62.0) fl RDW Coeff of Jelly 14 (11.0-15.0) % Plt Count 175 (150-400) K/uL MPV 10.10 (7.40-12.00) fL Neut % (Auto) 96.3 H (48.0-80.0) % Lymph % (Auto) 3.0 L (16.0-40.0) % [place] % (Auto) 0.7 (0.0-15.0) % Eos % (Auto) 0.0 (0.0-7.0) % Baso % (Auto) 0.0 (0.0-1.5) % Neut # (Auto) 5.4 (1.4-5.7) K/uL Lymph # (Auto) 0.2 L (0.6-2.4) K/uL [place] # (Auto) 0.0 (0.0-0.8) K/uL Eos # (Auto) 0.0 (0.0-0.7) K/uL Baso # (Auto) 0.0 (0.0-0.1) K/uL Nucleated RBC % 0.0 /100WBC Nucleated RBCs # 0 K/uL Sodium 138 (136-146) mmol/L Potassium 3.9 (3.5-5.1) mmol/L Chloride 96 L (98-110) mmol/L Carbon Dioxide 30 (21-31) mmol/L BUN 53 H (6.0-23.0) mg/dL Creatinine 1.7 H (0.6-1.5) mg/dL Est Cr Clr Drug Dosing TNP mL/min Estimated GFR (MDRD) 28.7 ml/min Glucose 194 H (60-110) mg/dL Calcium 8.2 L (8.8-10.8) mg/dL Phosphorus 3.8 (2.4-4.7) mg/dL Magnesium 1.4 L (1.5-2.3) mEq/L Total Bilirubin 0.2 (0.1-1.5) mg/dL AST 18 (5-40) IU/L ALT 15 (8-54) IU/L Alkaline Phosphatase 65 (40-150) Total Protein 5.8 L (6.0-8.0) g/dL Albumin 3.3 L (3.4-4.8) g/dL Globulin 2.5 (2.0-3.5) g/dL Albumin/Globulin Ratio 1.3 (1.3-2.8) Urine Color Urine Appearance Urine pH (5.0-8.0) Ur Specific [place] (1.001-1.035) Urine Protein (NEGATIVE) mg/dL Urine Glucose (UA) (NEGATIVE) mg/dL Urine Ketones (NEGATIVE) mg/dL Urine Occult Blood (NEGATIVE) Urine Nitrite (NEGATIVE) Urine Bilirubin (NEGATIVE) Urine Urobilinogen (<2.0) EU/dL Ur Leukocyte Esterase (NEGATIVE) Urine RBC (0-2/HPF) Urine WBC (0-5/HPF) Ur Epithelial Cells (NONE-FEW) Urine Bacteria (NEGATIVE) Luis Results last 24 hrs: Microbiology 06/02/16 18:41 Gram Stain - Preliminary Sputum - Expectorated 06/02/16 14:47 Influenza Type A Antigen Screen - Final Nasopharyngeal Swab NEGATIVE INFLUENZA A VIRUS AG Influenza Type B Antigen Screen - Final Positive Influenza B Ag Med Orders - Current: Current Medications Acetaminophen (Tylenol) 650 mg PO Q4H PRN PRN Reason: Pain (Mild 1-3)/fever Albuterol/Ipratropium (Duoneb 3.0-0.5 Mg/3 Ml) 3 ml NEB Q4HRRT PRN PRN Reason: Shortness Of Breath/wheezing Last Admin: 06/03/16 09:52 Dose: 3 ml Ceftriaxone Sodium/Dextrose 1 (gm/ Premix) 50 mls @ 100 mls/hr IV Q24H [facility] Last Admin: 06/02/16 19:10 Dose: 100 mls/hr Azithromycin 500 mg/ Sodium (Chloride) 250 mls @ 250 mls/hr IV Q24H [facility] Last Admin: 06/02/16 20:00 Dose: 250 mls/hr Methylprednisolone Sodium Succinate (Solu-Medrol) 125 mg IVPUSH Q8H [facility] Last Admin: 06/03/16 09:31 Dose: 125 mg Ondansetron HCl (Zofran Odt) 4 mg PO Q4H PRN PRN Reason: nausea, able to take PO Oseltamivir Phosphate (Oseltamivir Phosphate) 30 mg PO DAILY [facility] Discontinued Medications Calcium Carbonate/Glycine (Tums) 1,000 mg PO ONETIME ONE Stop: 06/02/16 17:15 Last Admin: 06/02/16 18:03 Dose: 1,000 mg Furosemide (Lasix) 40 mg IVPUSH NOW ONE Stop: 06/02/16 17:14 Last Admin: 06/02/16 18:04 Dose: 40 mg Furosemide (Lasix) 40 mg IVPUSH BIDDIURETIC [facility] Heparin Sodium (Porcine) (Heparin Sodium) 5,000 units SUBCUT Q12H [facility] Last Admin: 06/03/16 05:11 Dose: 5,000 units Levofloxacin/Dextrose 750 mg/ (Premix) 150 mls @ 100 mls/hr IV Q24H [facility] Last Admin: 06/02/16 18:19 Dose: 100 mls/hr Oseltamivir Phosphate (Tamiflu) 75 mg PO BID [facility] Last Admin: 06/03/16 09:31 Dose: 75 mg Oxycodone HCl (Oxycodone) 5 mg PO Q4H PRN PRN Reason: Pain (moderate 4-6) - Exam General: alert, oriented, cooperative Lungs: Wheezing Cardiovascular: Regular Rate, Regular Rhythm - Problem List & Annotations (1) Influenza B SNOMED Code(s): 72567438 Code(s): J10.1 - FLU DUE TO OTH IDENT INFLUENZA VIRUS W OTH RESP MANIFEST Status: Acute Priority: High Current Visit: Yes (2) Pneumonia SNOMED Code(s): 084895412 Code(s): J18.9 - PNEUMONIA, UNSPECIFIED ORGANISM Status: Acute Priority: High Current Visit: Yes Qualifiers: Pneumonia type: due to unspecified organism Laterality: left Lung location: lower lobe of lung Qualified Code(s): J18.1 - Lobar pneumonia, unspecified organism (3) COPD (chronic obstructive pulmonary disease) with emphysema SNOMED Code(s): 96241277 Code(s): J43.9 - EMPHYSEMA, UNSPECIFIED Status: Chronic Priority: High Current Visit: Yes Qualifiers: Emphysema type: unspecified Qualified Code(s): J43.9 - Emphysema, unspecified - Problem List Review Problem List Initiated/Reviewed/Updated: Yes - Assessment Assessment:: 06/03/2016 she feels improved anticipated discharge on Sunday or Sunday. Melba Davila MD - Plan Plan:: 85 yo female admitted 06/02/16 for hypoxia secondary to suspected pneumonia vs CHF exacerbation and influenza B with pmh of COPD oxygen dependent, CHF, Htn, ischemic cardiomyopathy and hypothyroid. Hypoxia: Looking at CXR this looks to be more of a CHF exacerbation vs pneumonia but with history will empirically treat for CAP with Levaquin and get sputum culture. There is no leukocytosis or fever. She is O2 dependent on 3L at home and is sating 91 % on 4 L on exam. Will give 40 Lasix IV now and monitor daily weights as I believe patient is volume overloaded at this time. Influenza B: Positive will give Tamiflu today 75 mg PO BID x 5 days. CHF: As above on exam seems volume overloaded. Home Lasix is 80 mg PO q day. Will give 40 Lasix now and plan for 40 IV BID monitoring daily weights. COPD: Some exacerbation secondary to flu. Exam diffuse decrease breath sounds. Start duo-nebs and Solumedrol. Bedside spirometry and flutter valve. Hypothyroid: Stable restart home meds. Hematuria: UA negative culture pending. VTE: Heparin and SCD.
[2016-06-03] MEDS ORDERED: Benzonatate 100 MG Cap PO PRN (14:44)
[2016-06-03] MEDS ORDERED: Furosemide 40 MG Tab PO SCH (14:45)
[2016-06-03] MEDS ORDERED: Acetaminophen 325 MG Tab PO PRN (14:46)
[2016-06-03] MEDS: Carvedilol 3.125 MG Tab PO SCH ×3 (16:22→21:42)
[2016-06-03] MEDS: cefTRIAXone 1 GM in Premix Bag 1 BAG IV SCH (18:06)
[2016-06-03] MEDS: Azithromycin 500 MG in Sodium Chloride 0.9% 250 ML IV SCH (18:10)
[2016-06-04] MEDS: methylPREDNISolone Sodium Succinate 125 MG/2 ML SDV IVPUSH SCH ×3 (01:17→16:42)
[2016-06-04] MEDS ORDERED: Losartan 50 MG Tab ONE (03:42)
[2016-06-04] MEDS: Losartan 50 MG Tab PO SCH ×2 (03:48→08:36)
[2016-06-04] MEDS: Levothyroxine 112 MCG Tab PO SCH (07:49)
[2016-06-04] MEDS: Aspirin 81 MG Tab.Chew PO SCH (08:36)
[2016-06-04] MEDS: Multivitamins with Iron/Calcium/Folic Acid/Minerals Tab PO SCH (08:36)
[2016-06-04] MEDS: Oseltamivir Phosphate 30 MG Capsule PO SCH (08:52)
[2016-06-04] MEDS: Potassium Chloride 8 MEQ Tab.ER PO SCH (08:52)
[2016-06-04] MEDS ORDERED: Furosemide 40 MG Tab PO SCH (09:55)
[2016-06-04] MEDS: Allopurinol 100 MG Tab PO SCH (11:37)
--- NOTE | 2016-06-04 13:41 | PCM.PN ---
- General Info Date of Service: 06/04/16 - Review of Systems Systems Review Comment:: she is still very short of breath with activity. - Patient Data Vitals - most recent: Last Vital Signs Temp 97.1 F 06/04/16 11:15 Pulse 89 06/04/16 11:15 Resp 20 06/04/16 11:15 BP 177/79 H 06/04/16 11:15 Pulse Ox 90 L 06/04/16 11:15 Weight - most recent: 87.5 kg I&O - last 24 hours: Intake & Output 06/03/16 06/04/16 06/04/16 22:59 06:59 14:59 Intake Total 790 Output Total 900 Balance -110 Lab Results last 24 hrs: Laboratory Results - last 24 hr 06/04/16 06/04/16 Range/Units 05:28 05:28 WBC 6.31 (4.0-11.0) K/uL RBC 3.65 L (4.30-5.90) M/uL Hgb 11.1 L (12.0-16.0) g/dL Hct 36.7 (36.0-46.0) % MCV 100.5 H (80.0-98.0) fL MCH 30.4 (27.0-32.0) pg MCHC 30.2 L (31.0-37.0) g/dL RDW Std Deviation 52.3 (28.0-62.0) fl RDW Coeff of Jelly 14 (11.0-15.0) % Plt Count 215 (150-400) K/uL MPV 9.90 (7.40-12.00) fL Neut % (Auto) 92.9 H (48.0-80.0) % Lymph % (Auto) 4.1 L (16.0-40.0) % [place] % (Auto) 3.0 (0.0-15.0) % Eos % (Auto) 0.0 (0.0-7.0) % Baso % (Auto) 0.0 (0.0-1.5) % Neut # (Auto) 5.9 H (1.4-5.7) K/uL Lymph # (Auto) 0.3 L (0.6-2.4) K/uL [place] # (Auto) 0.2 (0.0-0.8) K/uL Eos # (Auto) 0.0 (0.0-0.7) K/uL Baso # (Auto) 0.0 (0.0-0.1) K/uL Nucleated RBC % 0.0 /100WBC Nucleated RBCs # 0 K/uL Sodium 140 (136-146) mmol/L Potassium 4.7 (3.5-5.1) mmol/L Chloride 97 L (98-110) mmol/L Carbon Dioxide 32 H (21-31) mmol/L BUN 54 H (6.0-23.0) mg/dL Creatinine 1.5 (0.6-1.5) mg/dL Est Cr Clr Drug Dosing 24.72 mL/min Estimated GFR (MDRD) 33.2 ml/min Glucose 118 H (60-110) mg/dL Calcium 8.3 L (8.8-10.8) mg/dL Luis Results last 24 hrs: Microbiology 06/02/16 18:41 Gram Stain - Preliminary Sputum - Expectorated Sputum Culture - Preliminary 06/02/16 15:02 Urine Culture - Final Urine, Clean Catch No Growth 06/02/16 17:45 Aerobic Blood Culture - Preliminary Blood - Venous - Lab Draw NO GROWTH AFTER 1 DAY Anaerobic Blood Culture - Preliminary NO GROWTH AFTER 1 DAY 06/02/16 17:35 Aerobic Blood Culture - Preliminary Blood - Venous NO GROWTH AFTER 1 DAY Anaerobic Blood Culture - Preliminary NO GROWTH AFTER 1 DAY Med Orders - Current: Current Medications Acetaminophen (Tylenol) 650 mg PO Q4H PRN PRN Reason: Pain (Mild 1-3)/fever Acetaminophen (Tylenol) 650 mg PO Q4H PRN PRN Reason: Fever Last Admin: 06/03/16 16:28 Dose: 650 mg Albuterol/Ipratropium (Duoneb 3.0-0.5 Mg/3 Ml) 3 ml NEB Q4HRRT PRN PRN Reason: Shortness Of Breath/wheezing Last Admin: 06/03/16 21:02 Dose: 3 ml Allopurinol (Zyloprim) 100 mg PO WITHLUNCH [facility] Last Admin: 06/04/16 11:37 Dose: 100 mg Aspirin (Aspirin) 81 mg PO DAILY [facility] Last Admin: 06/04/16 08:36 Dose: 81 mg Benzonatate (Tessalon Perles) 200 mg PO TID PRN PRN Reason: Cough Carvedilol (Coreg) 3.125 mg PO BEDTIME [facility] Last Admin: 06/03/16 21:42 Dose: 3.125 mg Fluticasone Propionate (Flovent Hfa 110 Mcg) gm INH BID [facility] Furosemide (Lasix) 40 mg PO ONETIME ONE Stop: 06/04/16 13:32 Furosemide (Lasix) 80 mg PO DAILY [facility] Azithromycin 500 mg/ Sodium (Chloride) 250 mls @ 250 mls/hr IV Q24H [facility] Last Admin: 06/03/16 18:10 Dose: 250 mls/hr Cefepime HCl 1 gm/ Premix 50 mls @ 100 mls/hr IV Q8H [facility] Levothyroxine Sodium (Levothyroxine) 112 mcg PO ACBREAKFAST [facility] Last Admin: 06/04/16 07:49 Dose: 112 mcg Losartan Potassium (Cozaar) 25 mg PO DAILY [facility] Last Admin: 06/04/16 08:36 Dose: 25 mg Methylprednisolone Sodium Succinate (Solu-Medrol) 125 mg IVPUSH Q8H [facility] Last Admin: 06/04/16 08:36 Dose: 125 mg Multivitamins/Minerals (Thera M Plus) 1 tab PO DAILY [facility] Last Admin: 06/04/16 08:36 Dose: 1 tab Non-Formulary Medication (Calcium Carbonate/Vitamin D3) 1 tab PO DAILY [facility] Ondansetron HCl (Zofran Odt) 4 mg PO Q4H PRN PRN Reason: nausea, able to take PO Oseltamivir Phosphate (Oseltamivir Phosphate) 30 mg PO DAILY [facility] Last Admin: 06/04/16 08:52 Dose: 30 mg Potassium Chloride (Klor-Con 8) 8 meq PO DAILY [facility] Last Admin: 06/04/16 08:52 Dose: 8 meq Vancomycin HCl (Pharmacy To Dose - Vancomycin) 1 dose .XX ASDIRECTED [facility] Discontinued Medications Calcium Carbonate/Glycine (Tums) 1,000 mg PO ONETIME ONE Stop: 06/02/16 17:15 Last Admin: 06/02/16 18:03 Dose: 1,000 mg Carvedilol (Coreg) 3.125 mg PO BIDMEALS [facility] Last Admin: 06/03/16 16:40 Dose: Not Given Furosemide (Lasix) 40 mg IVPUSH NOW ONE Stop: 06/02/16 17:14 Last Admin: 06/02/16 18:04 Dose: 40 mg Furosemide (Lasix) 40 mg IVPUSH BIDDIURETIC [facility] Furosemide (Lasix) 40 mg PO ASDIRECTED [facility] Furosemide (Lasix) 40 mg PO DAILY [facility] Last Admin: 06/04/16 10:06 Dose: 40 mg Heparin Sodium (Porcine) (Heparin Sodium) 5,000 units SUBCUT Q12H [facility] Last Admin: 06/03/16 05:11 Dose: 5,000 units Levofloxacin/Dextrose 750 mg/ (Premix) 150 mls @ 100 mls/hr IV Q24H [facility] Last Admin: 06/02/16 18:19 Dose: 100 mls/hr Ceftriaxone Sodium/Dextrose 1 (gm/ Premix) 50 mls @ 100 mls/hr IV Q24H [facility] Last Admin: 06/03/16 18:06 Dose: 100 mls/hr Losartan Potassium (Cozaar) Confirm Administered Dose 50 mg .ROUTE .STK-MED ONE Stop: 06/04/16 03:43 Last Admin: 06/04/16 07:25 Dose: Not Given Oseltamivir Phosphate (Tamiflu) 75 mg PO BID [facility] Last Admin: 06/03/16 09:31 Dose: 75 mg Oxycodone HCl (Oxycodone) 5 mg PO Q4H PRN PRN Reason: Pain (moderate 4-6) - Exam General: alert, oriented, cooperative Lungs: Rales, Rhonchi Cardiovascular: Regular Rate, Regular Rhythm Abdomen: no tenderness Extremities: no edema - Problem List & Annotations (1) Influenza B SNOMED Code(s): 47264601 Code(s): J10.1 - FLU DUE TO OTH IDENT INFLUENZA VIRUS W OTH RESP MANIFEST Status: Acute Priority: High Current Visit: Yes (2) Pneumonia SNOMED Code(s): 475929150 Code(s): J18.9 - PNEUMONIA, UNSPECIFIED ORGANISM Status: Acute Priority: High Current Visit: Yes Qualifiers: Pneumonia type: due to unspecified organism Laterality: left Lung location: lower lobe of lung Qualified Code(s): J18.1 - Lobar pneumonia, unspecified organism (3) COPD (chronic obstructive pulmonary disease) with emphysema SNOMED Code(s): 73402742 Code(s): J43.9 - EMPHYSEMA, UNSPECIFIED Status: Chronic Priority: High Current Visit: Yes Qualifiers: Emphysema type: unspecified Qualified Code(s): J43.9 - Emphysema, unspecified (4) Hypertension SNOMED Code(s): 09975105 Code(s): I10 - ESSENTIAL (PRIMARY) HYPERTENSION Status: Acute Current Visit: Yes (5) Acute renal failure SNOMED Code(s): 68375757 Code(s): N17.9 - ACUTE KIDNEY FAILURE, UNSPECIFIED Status: Acute Priority : High Current Visit: Yes Qualifiers: Acute renal failure type: unspecified Qualified Code(s): N17.9 - Acute kidney failure, unspecified (6) Chronic kidney disease SNOMED Code(s): 919282135 Code(s): N18.9 - CHRONIC KIDNEY DISEASE, UNSPECIFIED Status: Acute Current Visit: Yes - Problem List Review Problem List Initiated/Reviewed/Updated: Yes - My Orders Last 24 Hours: My Active Orders 06/03/16 14:44 Benzonatate [Tessalon Perles] 200 mg PO TID PRN 06/03/16 14:46 Acetaminophen [Tylenol] 650 mg PO Q4H PRN 06/03/16 21:00 Carvedilol [Coreg] 3.125 mg PO BEDTIME 06/04/16 05:28 MAGNESIUM [CHEM] Routine 06/04/16 07:30 Levothyroxine 112 mcg PO ACBREAKFAST 06/04/16 09:00 Aspirin 81 mg PO DAILY Losartan [Cozaar] 25 mg PO DAILY Multivitamins w-Iron/Ca/FA/Min [Thera M Plus] 1 tab PO DAILY Potassium Chloride [Klor-Con 8] 8 meq PO DAILY 06/04/16 12:00 Allopurinol [Zyloprim] 100 mg PO WITHLUNCH 06/04/16 13:31 Furosemide [Lasix] 40 mg PO ONETIME ONE 06/04/16 13:45 Cefepime [Maxipime in D5W 1 GM/50 ML] 1 gm Premix Bag 1 bag IV Q8H Vancomycin Pharmacy to Dose [Pharmacy to Dose - Vancomycin] 1 dose .XX ASDIRECTED 06/04/16 21:00 Fluticasone Propionate [Flovent HFA 110 MCG] DOSE gm INH BID 06/05/16 08:00 CXR [Chest 1V Frontal] [CR] Routine 06/05/16 09:00 Calcium Carbonate/Vitamin D3 1 tab PO DAILY Furosemide [Lasix] 80 mg PO DAILY - Assessment Assessment:: 06/03/2016 she feels improved anticipated discharge on Sunday or Sunday. Melba Davila MD - Plan Plan:: 85 yo female admitted 06/02/16 for hypoxia secondary to suspected pneumonia vs CHF exacerbation and influenza B with pmh of COPD oxygen dependent, CHF, Htn, ischemic cardiomyopathy and hypothyroid. Hypoxia: Looking at CXR this looks to be more of a CHF exacerbation vs pneumonia but with history will empirically treat for CAP with Levaquin and get sputum culture. There is no leukocytosis or fever. She is O2 dependent on 3L at home and is sating 91 % on 4 L on exam. Will give 40 Lasix IV now and monitor daily weights as I believe patient is volume overloaded at this time. Influenza B: Positive will give Tamiflu today 75 mg PO BID x 5 days. CHF: As above on exam seems volume overloaded. Home Lasix is 80 mg PO q day. Will give 40 Lasix now and plan for 40 IV BID monitoring daily weights. COPD: Some exacerbation secondary to flu. Exam diffuse decrease breath sounds. Start duo-nebs and Solumedrol. Bedside spirometry and flutter valve. Hypothyroid: Stable restart home meds. Hematuria: UA negative culture pending. VTE: Heparin and SCD. 06/04/2016: with delayed clinical improvement, will broaden antibiotic coverage with adding cefepime and vancomycin. continue azithromycin. solumedrol BNP in am cxr in am restarted antihypertensives. continue O2 support; she uses home oxygen also. \ Popeye Davila MD
[2016-06-04] MEDS ORDERED: Furosemide 40 MG Tab PO ONE (13:45)
--- NOTE | 2016-06-04 13:45 | PCM.SN ---
- Free Text/Narrative Note: gross hematuria noted. will follow avoid heparin Popeye Davila MD
[2016-06-04] MEDS: Cefepime 1 GM in Premix Bag 1 BAG IV SCH ×2 (14:27→21:53)
[2016-06-04] MEDS: Azithromycin 500 MG in Sodium Chloride 0.9% 250 ML IV SCH (18:03)
[2016-06-04] MEDS: Carvedilol 3.125 MG Tab PO SCH (20:24)
[2016-06-04] MEDS: Albuterol/Ipratropium 3.0-0.5 MG/3 ML Neb Soln NEB PRN (21:00)
[2016-06-04] MEDS: Fluticasone Propionate 110 MCG/Puff 12 GM Inhaler INH SCH (21:13)
[2016-06-05] MEDS: methylPREDNISolone Sodium Succinate 125 MG/2 ML SDV IVPUSH SCH ×3 (01:35→17:08)
[2016-06-05] MEDS: Cefepime 1 GM in Premix Bag 1 BAG IV SCH ×3 (06:33→21:59)
[2016-06-05] MEDS: Levothyroxine 112 MCG Tab PO SCH (06:35)
[2016-06-05] MEDS: Aspirin 81 MG Tab.Chew PO SCH (08:21)
[2016-06-05] MEDS: Albuterol/Ipratropium 3.0-0.5 MG/3 ML Neb Soln NEB PRN ×2 (08:21→19:43)
[2016-06-05] MEDS: Losartan 50 MG Tab PO SCH (08:24)
[2016-06-05] MEDS: Fluticasone Propionate 110 MCG/Puff 12 GM Inhaler INH SCH ×2 (08:25→20:22)
[2016-06-05] MEDS: Furosemide 40 MG Tab PO SCH (08:27)
[2016-06-05] MEDS: Oseltamivir Phosphate 30 MG Capsule PO SCH ×2 (08:33→10:49)
[2016-06-05] MEDS: Multivitamins with Iron/Calcium/Folic Acid/Minerals Tab PO SCH (08:36)
[2016-06-05] MEDS: Calcium Carbonate/Vitamin D3 1500 MG-400 Units Tab PO SCH (08:36)
[2016-06-05] MEDS: Potassium Chloride 8 MEQ Tab.ER PO SCH (08:48)
--- NOTE | 2016-06-05 09:27 | CR ---
EXAMINATION: Portable chest radiograph. HISTORY: Pneumonia. COMPARISON: 06/05/2016. FINDINGS: The trachea is midline. The cardiomediastinal silhouette is stable. The heart is borderline in size. Persistent mild bibasal infiltrate and/or scarring is noted. A trace pleural effusion is not exclud ed. No pneumothorax. Osseous structures appear unremarkable. IMPRESSION: Grossly stable chest radiograph.
[2016-06-05] MEDS ORDERED: Magnesium Hydroxide 400 MG/5 ML Susp 30 ML Cup PO PRN (09:41)
--- NOTE | 2016-06-05 10:11 | PCM.PN ---
- General Info Date of Service: 06/05/16 Admission Dx/Problem (Free Text): Hypoxia, Influenza, Pneumonia Subjective Update: Patient feels she is doing better. She is eating well. Having some constipation this AM. No pain. Still some blood in her urine. Feels her breathing has improved since admission but still needing more oxygen than her home of 2-3 l/min. Functional Status: Reports: pain controlled, tolerating diet, ambulating, urinating - Review of Systems General: Reports: Weakness, Fatigue. Denies: Fever HEENT: Denies: dysphasia, sinus congestion Pulmonary: Reports: shortness of breath, cough, sputum. Denies: pleuritic chest pain, hemoptysis Cardiovascular: Reports: Edema. Denies: Chest Pain, Palpitations Gastrointestinal: Reports: Constipation. Denies: Abdominal pain, Hematochezia, Melena Genitourinary: Reports: hematuria. Denies: dysuria Musculoskeletal: Denies: neck pain, leg pain Skin: Denies: cyanosis, bruising Neurological: Denies: Confusion Psychiatric: Denies: confusion - Patient Data Vitals - most recent: Last Vital Signs Temp 37.0 C 06/05/16 08:43 Pulse 84 06/05/16 08:43 Resp 20 06/05/16 08:43 BP 186/74 H 06/05/16 08:43 Pulse Ox 90 L 06/05/16 08:43 Weight - most recent: 86 kg I&O - last 24 hours: Intake & Output 06/04/16 06/05/16 06/05/16 22:59 06:59 14:59 Intake Total 1500 500 50 Output Total 1100 1330 Balance 400 -830 50 Lab Results last 24 hrs: Laboratory Results - last 24 hr 06/04/16 06/05/16 06/05/16 Range/Units 05:28 04:23 04:23 WBC 6.59 (4.0-11.0) K/uL RBC 3.77 L (4.30-5.90) M/uL Hgb 11.6 L (12.0-16.0) g/dL Hct 38.2 (36.0-46.0) % MCV 101.3 H (80.0-98.0) fL MCH 30.8 (27.0-32.0) pg MCHC 30.4 L (31.0-37.0) g/dL RDW Std Deviation 51.8 (28.0-62.0) fl RDW Coeff of Jelly 14 (11.0-15.0) % Plt Count 222 (150-400) K/uL MPV 9.80 (7.40-12.00) fL Neut % (Auto) 94.0 H (48.0-80.0) % Lymph % (Auto) 3.0 L (16.0-40.0) % [place] % (Auto) 3.0 (0.0-15.0) % Eos % (Auto) 0.0 (0.0-7.0) % Baso % (Auto) 0.0 (0.0-1.5) % Neut # (Auto) 6.2 H (1.4-5.7) K/uL Lymph # (Auto) 0.2 L (0.6-2.4) K/uL [place] # (Auto) 0.2 (0.0-0.8) K/uL Eos # (Auto) 0.0 (0.0-0.7) K/uL Baso # (Auto) 0.0 (0.0-0.1) K/uL Nucleated RBC % 0.0 /100WBC Nucleated RBCs # 0 K/uL Sodium 144 (136-146) mmol/L Potassium 4.0 (3.5-5.1) mmol/L Chloride 97 L (98-110) mmol/L Carbon Dioxide 36 H (21-31) mmol/L BUN 59 H (6.0-23.0) mg/dL Creatinine 1.4 (0.6-1.5) mg/dL Est Cr Clr Drug Dosing 26.29 mL/min Estimated GFR (MDRD) 35.9 ml/min Glucose 131 H (60-110) mg/dL Calcium 8.2 L (8.8-10.8) mg/dL Magnesium 2.2 (1.5-2.3) mEq/L B-Natriuretic Peptide (<100) PG/ML 06/05/16 Range/Units 04:23 WBC (4.0-11.0) K/uL RBC (4.30-5.90) M/uL Hgb (12.0-16.0) g/dL Hct (36.0-46.0) % MCV (80.0-98.0) fL MCH (27.0-32.0) pg MCHC (31.0-37.0) g/dL RDW Std Deviation (28.0-62.0) fl RDW Coeff of Jelly (11.0-15.0) % Plt Count (150-400) K/uL MPV (7.40-12.00) fL Neut % (Auto) (48.0-80.0) % Lymph % (Auto) (16.0-40.0) % [place] % (Auto) (0.0-15.0) % Eos % (Auto) (0.0-7.0) % Baso % (Auto) (0.0-1.5) % Neut # (Auto) (1.4-5.7) K/uL Lymph # (Auto) (0.6-2.4) K/uL [place] # (Auto) (0.0-0.8) K/uL Eos # (Auto) (0.0-0.7) K/uL Baso # (Auto) (0.0-0.1) K/uL Nucleated RBC % /100WBC Nucleated RBCs # K/uL Sodium (136-146) mmol/L Potassium (3.5-5.1) mmol/L Chloride (98-110) mmol/L Carbon Dioxide (21-31) mmol/L BUN (6.0-23.0) mg/dL Creatinine (0.6-1.5) mg/dL Est Cr Clr Drug Dosing mL/min Estimated GFR (MDRD) ml/min Glucose (60-110) mg/dL Calcium (8.8-10.8) mg/dL Magnesium (1.5-2.3) mEq/L B-Natriuretic Peptide 519 H (<100) PG/ML Luis Results last 24 hrs: Microbiology 06/02/16 18:41 Gram Stain - Final Sputum - Expectorated Sputum Culture - Final Enterobacter Agglomerans Normal Respiratory Fide 06/02/16 17:45 Aerobic Blood Culture - Preliminary Blood - Venous - Lab Draw NO GROWTH AFTER 2 DAYS Anaerobic Blood Culture - Preliminary NO GROWTH AFTER 2 DAYS 06/02/16 17:35 Aerobic Blood Culture - Preliminary Blood - Venous NO GROWTH AFTER 2 DAYS Anaerobic Blood Culture - Preliminary NO GROWTH AFTER 2 DAYS 06/02/16 15:02 Urine Culture - Final Urine, Clean Catch No Growth Med Orders - Current: Current Medications Acetaminophen (Tylenol) 650 mg PO Q4H PRN PRN Reason: Pain (Mild 1-3)/fever Acetaminophen (Tylenol) 650 mg PO Q4H PRN PRN Reason: Fever Last Admin: 06/03/16 16:28 Dose: 650 mg Albuterol/Ipratropium (Duoneb 3.0-0.5 Mg/3 Ml) 3 ml NEB Q4HRRT PRN PRN Reason: Shortness Of Breath/wheezing Last Admin: 06/05/16 08:21 Dose: 3 ml Allopurinol (Zyloprim) 100 mg PO WITHLUNCH [facility] Last Admin: 06/04/16 11:37 Dose: 100 mg Aspirin (Aspirin) 81 mg PO DAILY [facility] Last Admin: 06/05/16 08:21 Dose: 81 mg Benzonatate (Tessalon Perles) 200 mg PO TID PRN PRN Reason: Cough Calcium Carbonate (Caltrate 600+D 1500 Mg-400 Units) 1 tab PO DAILY [facility] Last Admin: 06/05/16 08:36 Dose: Not Given Carvedilol (Coreg) 3.125 mg PO BEDTIME [facility] Last Admin: 06/04/16 20:24 Dose: 3.125 mg Fluticasone Propionate (Flovent Hfa 110 Mcg) 12 gm INH BID [facility] Last Admin: 06/05/16 08:25 Dose: 1 puff Furosemide (Lasix) 80 mg PO DAILY [facility] Last Admin: 06/05/16 08:27 Dose: 80 mg Azithromycin 500 mg/ Sodium (Chloride) 250 mls @ 250 mls/hr IV Q24H [facility] Last Admin: 06/04/16 18:03 Dose: 250 mls/hr Cefepime HCl 1 gm/ Premix 50 mls @ 100 mls/hr IV Q8HR [facility] Last Admin: 06/05/16 06:33 Dose: 100 mls/hr Vancomycin HCl 1 gm/ Sodium (Chloride) 250 mls @ 250 mls/hr IV Q24H [facility] Last Admin: 06/04/16 14:37 Dose: 250 mls/hr Levothyroxine Sodium (Levothyroxine) 112 mcg PO ACBREAKFAST [facility] Last Admin: 06/05/16 06:35 Dose: 112 mcg Losartan Potassium (Cozaar) 25 mg PO DAILY [facility] Last Admin: 06/05/16 08:24 Dose: 25 mg Magnesium Hydroxide (Milk Of Magnesia) 30 ml PO DAILY PRN PRN Reason: Constipation Methylprednisolone Sodium Succinate (Solu-Medrol) 125 mg IVPUSH Q8H [facility] Last Admin: 06/05/16 09:30 Dose: 125 mg Multivitamins/Minerals (Thera M Plus) 1 tab PO DAILY [facility] Last Admin: 06/05/16 08:36 Dose: Not Given Ondansetron HCl (Zofran Odt) 4 mg PO Q4H PRN PRN Reason: nausea, able to take PO Oseltamivir Phosphate (Oseltamivir Phosphate) 30 mg PO DAILY [facility] Last Admin: 06/05/16 08:33 Dose: Not Given Potassium Chloride (Klor-Con 8) 8 meq PO DAILY [facility] Last Admin: 06/05/16 08:48 Dose: 8 meq Vancomycin HCl (Pharmacy To Dose - Vancomycin) 1 dose .XX ASDIRECTED [facility] Discontinued Medications Calcium Carbonate/Glycine (Tums) 1,000 mg PO ONETIME ONE Stop: 06/02/16 17:15 Last Admin: 06/02/16 18:03 Dose: 1,000 mg Carvedilol (Coreg) 3.125 mg PO BIDMEALS [facility] Last Admin: 06/03/16 16:40 Dose: Not Given Furosemide (Lasix) 40 mg IVPUSH NOW ONE Stop: 06/02/16 17:14 Last Admin: 06/02/16 18:04 Dose: 40 mg Furosemide (Lasix) 40 mg IVPUSH BIDDIURETIC [facility] Furosemide (Lasix) 40 mg PO ASDIRECTED [facility] Furosemide (Lasix) 40 mg PO DAILY [facility] Last Admin: 06/04/16 10:06 Dose: 40 mg Furosemide (Lasix) 40 mg PO ONETIME ONE Stop: 06/04/16 13:46 Last Admin: 06/04/16 14:27 Dose: 40 mg Heparin Sodium (Porcine) (Heparin Sodium) 5,000 units SUBCUT Q12H [facility] Last Admin: 06/03/16 05:11 Dose: 5,000 units Levofloxacin/Dextrose 750 mg/ (Premix) 150 mls @ 100 mls/hr IV Q24H [facility] Last Admin: 06/02/16 18:19 Dose: 100 mls/hr Ceftriaxone Sodium/Dextrose 1 (gm/ Premix) 50 mls @ 100 mls/hr IV Q24H [facility] Last Admin: 06/03/16 18:06 Dose: 100 mls/hr Losartan Potassium (Cozaar) Confirm Administered Dose 50 mg .ROUTE .STK-MED ONE Stop: 06/04/16 03:43 Last Admin: 06/04/16 07:25 Dose: Not Given Oseltamivir Phosphate (Tamiflu) 75 mg PO BID [facility] Last Admin: 06/03/16 09:31 Dose: 75 mg Oxycodone HCl (Oxycodone) 5 mg PO Q4H PRN PRN Reason: Pain (moderate 4-6) - Exam Quality Assessment: supplemental oxygen, DVT prophylaxis General: alert, oriented, cooperative, no acute distress HEENT: Pupils equal, Pupils reactive, EOMI, Mucous membr. moist/pink Neck: supple, trachea midline, no JVD Lungs: Normal respiratory effort, Decreased breath sounds, Crackles, Rales Cardiovascular: Regular Rate, Regular Rhythm, Murmurs Abdomen: bowel sounds present, soft, no tenderness, no distension Back Exam: normal inspection Extremities: edema (+1) Peripheral Pulses: 2+: radial (L), radial (R), posterior tibial (L), posterior tibial (R), dorsalis pedis (L), dorsalis pedis (R) Skin: warm, dry, intact Neurological: no new focal deficit Psy/Mental Status: alert, normal affect, normal mood - Problem List & Annotations (1) Pneumonia SNOMED Code(s): 925435438 Code(s): J18.9 - PNEUMONIA, UNSPECIFIED ORGANISM Status: Acute Priority: High Current Visit: Yes Qualifiers: Pneumonia type: due to unspecified organism Laterality: left Lung location: lower lobe of lung Qualified Code(s): J18.1 - Lobar pneumonia, unspecified organism (2) Influenza B SNOMED Code(s): 55168094 Code(s): J10.1 - FLU DUE TO OTH IDENT INFLUENZA VIRUS W OTH RESP MANIFEST Status: Acute Priority: High Current Visit: Yes (3) Acute renal failure SNOMED Code(s): 71613898 Code(s): N17.9 - ACUTE KIDNEY FAILURE, UNSPECIFIED Status: Resolved Priority: Low Current Visit: Yes Qualifiers: Acute renal failure type: unspecified Qualified Code(s): N17.9 - Acute kidney failure, unspecified (4) CHF (congestive heart failure) SNOMED Code(s): 67431819 Code(s): I50.9 - HEART FAILURE, UNSPECIFIED Status: Chronic Priority: Medium Current Visit: Yes Qualifiers: Congestive heart failure type: unspecified congestive heart failure type Congestive heart failure chronicity: acute on chronic Qualified Code(s): I50.9 - Heart failure, unspecified (5) COPD (chronic obstructive pulmonary disease) with emphysema SNOMED Code(s): 42152333 Code(s): J43.9 - EMPHYSEMA, UNSPECIFIED Status: Chronic Priority: High Current Visit: Yes Qualifiers: Emphysema type: unspecified Qualified Code(s): J43.9 - Emphysema, unspecified (6) Hypothyroid SNOMED Code(s): 20656511 Code(s): E03.9 - HYPOTHYROIDISM, UNSPECIFIED Status: Chronic Priority: Medium Current Visit: Yes Qualifiers: Hypothyroidism type: unspecified Qualified Code(s): E03.9 - Hypothyroidism , unspecified - Problem List Review Problem List Initiated/Reviewed/Updated: Yes - My Orders Last 24 Hours: My Active Orders 06/05/16 07:56 PT Evaluation and Treatment [CONS] Routine 06/05/16 09:41 Magnesium Hydroxide [Milk of Magnesia] 30 ml PO DAILY PRN 06/06/16 05:00 BASIC METABOLIC PANEL,BMP [CHEM] DAILY CBC WITH AUTO DIFF [HEME] DAILY 06/07/16 05:00 BASIC METABOLIC PANEL,BMP [CHEM] DAILY CBC WITH AUTO DIFF [HEME] DAILY - Assessment Assessment:: 06/03/2016 she feels improved anticipated discharge on Sunday or Sunday. Melba Davila MD - Plan Plan:: 85 yo female admitted 06/02/16 for hypoxia secondary to suspected pneumonia vs CHF exacerbation and influenza B with pmh of COPD oxygen dependent, CHF, Htn, ischemic cardiomyopathy and hypothyroid. Hypoxia: Still requiring 4 L supplemental O2 (home 2-3). CXR this am showed mild persistent bibasal infiltrate and/or scarring but no change from previous CXR. Sputum culture positive for Enterobacter Agglomerans sensitive to Cefipime. I still feel that this more of a combination of influenza with COPD exacerbation with mild CHF exacerbation. Will cont. broad spectrum abx secondary to culture. Azithromycin Day 4, Cefepime Day 2, and Vanc Day 2. Influenza B: Positive continue Tamiflu today 30 mg PO BID day 5 of 5. Decreased dose secondary to renal function. CHF: More euvolumic on exam today. Will cont. home Lasix 80 mg PO q day. Will monitor closely as BNP is elevated in the 500's and on previous admissions was in the 200's. Patient at 86 kg which was her weight on admission as well as on previous hospitalization. COPD: Exacerbation secondary to flu. Improved exam since admission still bibasilar rales but no wheezes this morning. Cont. duo-nebs, Solumedrol, bedside spirometry and flutter valve. Hypothyroid: Stable cont. home meds. Hematuria: UA and UC negative. Most likely secondary to chronic kidney disease. VTE: Hold heparin secondary to hematuria. SCD's in place. Dispo: Possible tomorrow pending. PT/OT ordered for today.
[2016-06-05] MEDS: Allopurinol 100 MG Tab PO SCH (13:04)
[2016-06-05] MEDS: Petrolatum,White Ointment 50 GM Tube TOP PRN (17:08)
[2016-06-05] MEDS: Azithromycin 500 MG in Sodium Chloride 0.9% 250 ML IV SCH (18:00)
[2016-06-05] MEDS: Carvedilol 3.125 MG Tab PO SCH (21:58)
[2016-06-06] MEDS: Petrolatum,White Ointment 50 GM Tube TOP PRN (01:23)
[2016-06-06] MEDS: methylPREDNISolone Sodium Succinate 125 MG/2 ML SDV IVPUSH SCH ×2 (01:25→09:05)
[2016-06-06] MEDS: Cefepime 1 GM in Premix Bag 1 BAG IV SCH (06:46)
[2016-06-06] MEDS: Levothyroxine 112 MCG Tab PO SCH (06:52)
[2016-06-06] MEDS: Calcium Carbonate/Vitamin D3 1500 MG-400 Units Tab PO SCH ×2 (09:00→09:06)
[2016-06-06] MEDS: Aspirin 81 MG Tab.Chew PO SCH ×2 (09:00→09:06)
[2016-06-06] MEDS: Multivitamins with Iron/Calcium/Folic Acid/Minerals Tab PO SCH ×2 (09:01→09:06)
[2016-06-06] MEDS: Losartan 50 MG Tab PO SCH (09:01)
[2016-06-06] MEDS: Furosemide 40 MG Tab PO SCH (09:01)
[2016-06-06] MEDS: Potassium Chloride 8 MEQ Tab.ER PO SCH (09:13)
[2016-06-06] MEDS: Fluticasone Propionate 110 MCG/Puff 12 GM Inhaler INH SCH (09:57)
[2016-06-06] MEDS: Albuterol/Ipratropium 3.0-0.5 MG/3 ML Neb Soln NEB PRN (09:57)
[2016-06-06] MEDS: Oseltamivir Phosphate 30 MG Capsule PO SCH (11:44)
[2016-06-06] MEDS: Allopurinol 100 MG Tab PO SCH (11:44)
[2016-06-06 12:15] VITALS: BP 173/77
--- NOTE | 2016-06-06 14:21 | PCM.DCSUM1 ---
Discharge Summary - Hospital Course HPI Initial Comments: 85 yo female admitted directly from Dr. Bennett clinic on 06/02/16 for hypoxia, influenza B positive, suspected pneumonia with pmh of COPD on home oxygen, ischemic cardiomyopathy, [place] no stents, CHF, Htn, hypothyroid, hyperlipidemia and gout. Brief History: Patient stated that she initially started to feel sick on Sunday05/27/16 with her first symptoms being cough and some shortness of breath. She went to the emergency department on Sunday 05/28 and was given a dose of Solu-Medrol and Cefdnir. Patient denied admission at that time for COPD exacerbation and wanted to follow-up with Dr. Bennett on Sunday for her regular appointment. Patient saw Dr. Bennett on Sunday and he instructed her to continue the ED instructions and return to clinic on Sunday06/01/16 if she was not doing better. Patient stated that she used her home nebulizer and took the Cefdnir but it caused urinary retention even with her home lasix. Her cough and congestion became worse over the week so she scheduled to see Dr. Bennett on Sunday06/01/16. In clinic patient was found to be hypoxic 88% on 3L of oxygen. CXR showed bibasilar atelectasis and/or infiltrate. Patient also tested positive for influenza B. Patient also noted some hematuria so UA and UC were collected. Secondary to hypoxia and suspected pneumonia Dr. Bennett felt patient needed hospitalization for treatement. Patient was afebrile but tachycardic, there was no leukocytosis but BUN and Cr were elevated to 53 and 1.9 respectively. UA was negative for infection but did show large occult blood. Patient was directly admitted for hypoxia, suspected pneumonia, influenza B, suspected COPD exacerbation and mild CHF exacerbation. - Discharge Data Discharge Date: 06/06/16 Discharge Disposition: Home, [facility] 06 Condition: Good - Discharge Diagnosis/Problem(s) (1) Pneumonia SNOMED Code(s): 218941639 ICD Code: J18.9 - PNEUMONIA, UNSPECIFIED ORGANISM Status: Acute Priority : High Current Visit: Yes Qualifiers: Pneumonia type: due to other aerobic Gram-negative bacteria Laterality: left Lung location: lower lobe of lung Qualified Code(s): J15.6 - Pneumonia due to other aerobic Gram-negative bacteria (2) Influenza B SNOMED Code(s): 03523177 ICD Code: J10.1 - FLU DUE TO OTH IDENT INFLUENZA VIRUS W OTH RESP MANIFEST Status: Acute Priority: High Current Visit: Yes (3) Acute renal failure SNOMED Code(s): 97319837 ICD Code: N17.9 - ACUTE KIDNEY FAILURE, UNSPECIFIED Status: Resolved Priority: Low Current Visit: Yes Qualifiers: Acute renal failure type: unspecified Qualified Code(s): N17.9 - Acute kidney failure, unspecified (4) CHF (congestive heart failure) SNOMED Code(s): 86686951 ICD Code: I50.9 - HEART FAILURE, UNSPECIFIED Status: Chronic Priority: Medium Current Visit: Yes Qualifiers: Congestive heart failure type: unspecified congestive heart failure type Congestive heart failure chronicity: chronic Qualified Code(s): I50.9 - Heart failure, unspecified (5) COPD (chronic obstructive pulmonary disease) with emphysema SNOMED Code(s): 51780545 ICD Code: J43.9 - EMPHYSEMA, UNSPECIFIED Status: Chronic Priority: High Current Visit: Yes Qualifiers: Emphysema type: unspecified Qualified Code(s): J43.9 - Emphysema, unspecified (6) Hypothyroid SNOMED Code(s): 16817243 ICD Code: E03.9 - HYPOTHYROIDISM, UNSPECIFIED Status: Chronic Priority: Medium Current Visit: Yes Qualifiers: Hypothyroidism type: unspecified Qualified Code(s): E03.9 - Hypothyroidism , unspecified - Patient Summary/Data Consults: Consultations 06/05/16 07:56 PT Evaluation and Treatment [CONS] Routine 06/06/16 13:39 Consult to Home Care [Consult to Home Health] [CONS] Routine Hospital Course: Patient was directly admitted for hypoxia, suspected pneumonia, influenza B, suspected COPD exacerbation and mild CHF exacerbation. Patient was placed on broad spectrum abx of Cefepime, Azithromycin, and Vancomycin. She recieved IV solu-medrol as well as duonebs q 4 hrs. She was treated with Tamiflu and given one dose of IV Lasix 40 mg on admission. Blood cultures were negative x3 days on day of discharge. Sputum culture grew Enterobacter Agglomerans sensitive to all cephalosporins. During admission patient did complain of prurits with Solu-medrol and refused treatment on day of discharge. She improved on a daily basis and kidney function returned to her baseline of around 1.5. Patient most likely had some aspect of cardiorenal syndrome secondary to mild volume overload. Patient was discharged with home health, a tapered dose of prednisone, and Keflex for an additional 7 days. She was also scheduled to follow-up with Dr. Bennett as well as encourged to attend her already scheduled appointment with Dr. Nicole, car shunter in [place]. Patient did recieve a full 5 days of Tamiflu while in house. She was instructed to return to the ED if she had any worsening of her symptoms. - Patient Instructions Diet: Heart Healthy Diet, Low Sodium Activity: Rest and Relax Today Driving: Do Not Drive Showering/Bathing: May Shower Notify Provider of: Fever, Increased Pain, Nausea and/or Vomiting Other/Special Instructions: Follow up with Dr. Bennett. Follow up with Dr. Maciel, car shunter. Take medications as prescribed. - Discharge Plan Prescriptions/Med Rec: Cephalexin [Keflex] 500 mg PO Q6H #28 capsule predniSONE [Prednisone] 20 mg PO DAILY #18 tablet Home Medications: Home Meds Calcium Carbonate/Vitamin D3 [Os-Mil 500+D] 1 tab PO DAILY 01/10/14 [History] Carvedilol [Coreg] 3.125 mg PO BEDTIME 01/10/14 [History] Furosemide [Lasix] 80 mg PO QAM 01/10/14 [History] Losartan Potassium 25 mg PO DAILY 01/10/14 [History] Multivitamin,Stress Formula [Stress Formula] 1 tab PO DAILY 01/10/14 [History] Potassium Chloride 8 meq PO DAILY 01/10/14 [History] Albuterol [Ventolin HFA] 1 - 2 puff INH Q4H PRN 05/28/16 [History] Albuterol/Ipratropium [DuoNeb 3.0-0.5 MG/3 ML] 3 ml INH QID 05/28/16 [History] Aspirin 81 mg PO DAILY 05/28/16 [History] Allopurinol [Zyloprim] 100 mg PO WITHLUNCH 06/02/16 [History] Benzonatate 200 mg PO TID PRN 06/02/16 [History] Clobetasol Propionate [Temovate] 1 applic TOP BID 06/02/16 [History] Fluticasone Propionate [Flovent HFA 110 MCG] 2 puff INH BID 06/02/16 [History] Furosemide [Lasix] 40 mg PO QPM 06/02/16 [History] Ibuprofen [Advil] 200 mg PO TID PRN 06/02/16 [History] Levothyroxine Sodium [Synthroid] 112 mcg PO DAILY 06/02/16 [History] Nitroglycerin [Nitrostat] 0.4 mg SL Q5M PRN 06/02/16 [History] Cephalexin [Keflex] 500 mg PO Q6H #28 capsule 06/06/16 [Rx] predniSONE [Prednisone] 20 mg PO DAILY #18 tablet 06/06/16 [Rx] Patient Handouts: Chronic Obstructive Pulmonary Disease Exacerbation, Easy-to- Read, Hypertension, [id number], Chronic Kidney Disease, [id number], Cephalexin tablets or capsules, Prednisone tablets, Community-Acquired Pneumonia , Adult, [id number] Referrals: Toni Bennett MD [Physician] - 06/13/16 10:30 am - Discharge Summary/Plan Comment DC Time >30 min.: Yes Discharge Summary/Plan Comment: 85 yo female admitted directly from Dr. Bennett clinic on 06/02/16 for hypoxia, influenza B positive, suspected pneumonia with pmh of COPD on home oxygen, ischemic cardiomyopathy, [place] no stents, CHF, Htn, hypothyroid, hyperlipidemia and gout. Patient stated that she initially started to feel sick on Sunday05/27/16 with her first symptoms being cough and some shortness of breath. She went to the emergency department on Sunday 05/28 and was given a dose of Solu-Medrol and Cefdnir. Patient denied admission at that time for COPD exacerbation and wanted to follow-up with Dr. Bennett on Sunday for her regular appointment. Patient saw Dr. Bennett on Sunday and he instructed her to continue the ED instructions and return to clinic on Sunday06/01/16 if she was not doing better. Patient stated that she used her home nebulizer and took the Cefdnir but it caused urinary retention even with her home lasix. Her cough and congestion became worse over the week so she scheduled to see Dr. Bennett on Sunday06/01/16. In clinic patient was found to be hypoxic 88% on 3L of oxygen. CXR showed bibasilar atelectasis and/or infiltrate. Patient also tested positive for influenza B. Patient also noted some hematuria so UA and UC were collected. Secondary to hypoxia and suspected pneumonia Dr. Bennett felt patient needed hospitalization for treatement. Patient was afebrile but tachycardic, there was no leukocytosis but BUN and Cr were elevated to 53 and 1.9 respectively. UA was negative for infection but did show large occult blood. Patient was directly admitted for hypoxia, suspected pneumonia, influenza B, suspected COPD exacerbation and mild CHF exacerbation. Patient was placed on broad spectrum abx of Cefepime, Azithromycin, and Vancomycin. She recieved IV solu-medrol as well as duonebs q 4 hrs. She was treated with Tamiflu and given one dose of IV Lasix 40 mg on admission. Blood cultures were negative x3 days on day of discharge. Sputum culture grew Enterobacter Agglomerans sensitive to all cephalosporins. During admission patient did complain of prurits with Solu-medrol and refused treatment on day of discharge. She improved on a daily basis and kidney function returned to her baseline of around 1.5. Patient most likely had some aspect of cardiorenal syndrome secondary to mild volume overload. Patient was discharged with home health, a tapered dose of prednisone, and Keflex for an additional 7 days. She was also scheduled to follow-up with Dr. Bennett as well as encourged to attend her already scheduled appointment with Dr. Nicole, car shunter in [place]. Patient did recieve a full 5 days of Tamiflu while in house. She was instructed to return to the ED if she had any worsening of her symptoms. - Patient Data Vitals - Most Recent: Last Vital Signs Temp 37.1 C 06/06/16 12:00 Pulse 91 06/06/16 12:00 Resp 16 06/06/16 12:00 BP 173/77 H 06/06/16 12:00 Pulse Ox 90 L 06/06/16 12:00 Weight - Most Recent: 86.5 kg I&O - Last 24 hours: Intake & Output 06/05/16 06/06/16 06/06/16 22:59 06:59 14:59 Intake Total 1200 350 50 Output Total 1650 900 Balance -450 -550 50 Lab Results - Last 24 hrs: Laboratory Results - last 24 hr 06/06/16 06/06/16 Range/Units 05:54 05:54 WBC 6.57 (4.0-11.0) K/uL RBC 3.83 L (4.30-5.90) M/uL Hgb 11.8 L (12.0-16.0) g/dL Hct 38.1 (36.0-46.0) % MCV 99.5 H (80.0-98.0) fL MCH 30.8 (27.0-32.0) pg MCHC 31.0 (31.0-37.0) g/dL RDW Std Deviation 50.6 (28.0-62.0) fl RDW Coeff of Jelly 14 (11.0-15.0) % Plt Count 230 (150-400) K/uL MPV 9.40 (7.40-12.00) fL Neut % (Auto) 94.2 H (48.0-80.0) % Lymph % (Auto) 2.9 L (16.0-40.0) % [place] % (Auto) 2.9 (0.0-15.0) % Eos % (Auto) 0.0 (0.0-7.0) % Baso % (Auto) 0.0 (0.0-1.5) % Neut # (Auto) 6.2 H (1.4-5.7) K/uL Lymph # (Auto) 0.2 L (0.6-2.4) K/uL [place] # (Auto) 0.2 (0.0-0.8) K/uL Eos # (Auto) 0.0 (0.0-0.7) K/uL Baso # (Auto) 0.0 (0.0-0.1) K/uL Nucleated RBC % 0.0 /100WBC Nucleated RBCs # 0 K/uL Sodium 142 (136-146) mmol/L Potassium 4.0 (3.5-5.1) mmol/L Chloride 96 L (98-110) mmol/L Carbon Dioxide 36 H (21-31) mmol/L BUN 56 H (6.0-23.0) mg/dL Creatinine 1.5 (0.6-1.5) mg/dL Est Cr Clr Drug Dosing 24.54 mL/min Estimated GFR (MDRD) 33.2 ml/min Glucose 128 H (60-110) mg/dL Calcium 8.5 L (8.8-10.8) mg/dL MABEL Results - Last 24 hrs: Microbiology 06/02/16 17:45 Aerobic Blood Culture - Preliminary Blood - Venous - Lab Draw NO GROWTH AFTER 3 DAYS Anaerobic Blood Culture - Preliminary NO GROWTH AFTER 3 DAYS 06/02/16 17:35 Aerobic Blood Culture - Preliminary Blood - Venous NO GROWTH AFTER 3 DAYS Anaerobic Blood Culture - Preliminary NO GROWTH AFTER 3 DAYS Med Orders - Current: Current Medications Acetaminophen (Tylenol) 650 mg PO Q4H PRN PRN Reason: Fever Last Admin: 06/03/16 16:28 Dose: 650 mg Albuterol/Ipratropium (Duoneb 3.0-0.5 Mg/3 Ml) 3 ml NEB Q4HRRT PRN PRN Reason: Shortness Of Breath/wheezing Last Admin: 06/06/16 09:57 Dose: 3 ml Allopurinol (Zyloprim) 100 mg PO WITHLUNCH [facility] Last Admin: 06/06/16 11:44 Dose: 100 mg Aspirin (Aspirin) 81 mg PO DAILY [facility] Last Admin: 06/06/16 09:06 Dose: Not Given Benzonatate (Tessalon Perles) 200 mg PO TID PRN PRN Reason: Cough Calcium Carbonate (Caltrate 600+D 1500 Mg-400 Units) 1 tab PO DAILY [facility] Last Admin: 06/06/16 09:06 Dose: Not Given Carvedilol (Coreg) 3.125 mg PO BEDTIME [facility] Last Admin: 06/05/16 21:58 Dose: 3.125 mg Fluticasone Propionate (Flovent Hfa 110 Mcg) 12 gm INH BID [facility] Last Admin: 06/06/16 09:57 Dose: 2 puff Furosemide (Lasix) 80 mg PO DAILY [facility] Last Admin: 06/06/16 09:01 Dose: 80 mg Azithromycin 500 mg/ Sodium (Chloride) 250 mls @ 250 mls/hr IV Q24H [facility] Last Admin: 06/05/16 18:00 Dose: 250 mls/hr Cefepime HCl 1 gm/ Premix 50 mls @ 100 mls/hr IV Q8HR [facility] Last Admin: 06/06/16 06:46 Dose: 100 mls/hr Vancomycin HCl 1 gm/ Sodium (Chloride) 250 mls @ 250 mls/hr IV Q24H [facility] Last Admin: 06/05/16 16:06 Dose: 250 mls/hr Levothyroxine Sodium (Levothyroxine) 112 mcg PO ACBREAKFAST [facility] Last Admin: 06/06/16 06:52 Dose: 112 mcg Losartan Potassium (Cozaar) 25 mg PO DAILY [facility] Last Admin: 06/06/16 09:01 Dose: 25 mg Magnesium Hydroxide (Milk Of Magnesia) 30 ml PO DAILY PRN PRN Reason: Constipation Last Admin: 06/05/16 10:51 Dose: 30 ml Methylprednisolone Sodium Succinate (Solu-Medrol) 125 mg IVPUSH Q8H [facility] Last Admin: 06/06/16 09:05 Dose: Not Given Multivitamins/Minerals (Thera M Plus) 1 tab PO DAILY [facility] Last Admin: 06/06/16 09:06 Dose: Not Given Ondansetron HCl (Zofran Odt) 4 mg PO Q4H PRN PRN Reason: nausea, able to take PO Oseltamivir Phosphate (Oseltamivir Phosphate) 30 mg PO DAILY [facility] Last Admin: 06/06/16 11:44 Dose: 30 mg Petrolatum (Aquaphor With Natural Healing) 50 gm TOP ASDIRECTED PRN PRN Reason: Itching Last Admin: 06/06/16 01:23 Dose: 1 applic Potassium Chloride (Klor-Con 8) 8 meq PO DAILY [facility] Last Admin: 06/06/16 09:13 Dose: 8 meq Vancomycin HCl (Pharmacy To Dose - Vancomycin) 1 dose .XX ASDIRECTED [facility] Discontinued Medications Calcium Carbonate/Glycine (Tums) 1,000 mg PO ONETIME ONE Stop: 06/02/16 17:15 Last Admin: 06/02/16 18:03 Dose: 1,000 mg Carvedilol (Coreg) 3.125 mg PO BIDMEALS [facility] Last Admin: 06/03/16 16:40 Dose: Not Given Furosemide (Lasix) 40 mg IVPUSH NOW ONE Stop: 06/02/16 17:14 Last Admin: 06/02/16 18:04 Dose: 40 mg Furosemide (Lasix) 40 mg IVPUSH BIDDIURETIC [facility] Furosemide (Lasix) 40 mg PO ASDIRECTED [place]CO Furosemide (Lasix) 40 mg PO DAILY [facility] Last Admin: 06/04/16 10:06 Dose: 40 mg Furosemide (Lasix) 40 mg PO ONETIME ONE Stop: 06/04/16 13:46 Last Admin: 06/04/16 14:27 Dose: 40 mg Heparin Sodium (Porcine) (Heparin Sodium) 5,000 units SUBCUT Q12H [facility] Last Admin: 06/03/16 05:11 Dose: 5,000 units Levofloxacin/Dextrose 750 mg/ (Premix) 150 mls @ 100 mls/hr IV Q24H [facility] Last Admin: 06/02/16 18:19 Dose: 100 mls/hr Ceftriaxone Sodium/Dextrose 1 (gm/ Premix) 50 mls @ 100 mls/hr IV Q24H [facility] Last Admin: 06/03/16 18:06 Dose: 100 mls/hr Losartan Potassium (Cozaar) Confirm Administered Dose 50 mg .ROUTE .[facility]-MED ONE Stop: 06/04/16 03:43 Last Admin: 06/04/16 07:25 Dose: Not Given Oseltamivir Phosphate (Tamiflu) 75 mg PO BID [facility] Last Admin: 06/03/16 09:31 Dose: 75 mg Oxycodone HCl (Oxycodone) 5 mg PO Q4H PRN PRN Reason: Pain (moderate 4-6) *Q Meaningful Use (DIS) - VTE *Q VTE Criteria *Q: - Stroke *Q Stroke Criteria *Q: - AMI *Q AMI Criteria *Q:
== END 2016-06-06 14:25 | disposition home health service (06) | DRG 190 ==
LOC: MW.CHFP 14:35 → UNDOADMIN 16:26 → MW.MS 16:26
PROVIDERS: ADMIT Internal Medicine; ATTEND Internal Medicine
DX: J44.0 Chronic obstructive pulmonary disease with (acute) lower respiratory infection (principal); J15.6 Pneumonia due to other Gram-negative bacteria; I42.9 Cardiomyopathy, unspecified; N17.9 Acute kidney failure, unspecified; J44.1 Chronic obstructive pulmonary disease with (acute) exacerbation; Z79.899 Other long term (current) drug therapy; J11.1 Influenza due to unidentified influenza virus with other respiratory manifestations; I25.2 Old myocardial infarction; E03.9 Hypothyroidism, unspecified; E78.5 Hyperlipidemia, unspecified; I50.9 Heart failure, unspecified; Z99.81 Dependence on supplemental oxygen; Z88.8 Allergy status to other drugs, medicaments and biological substances; Z79.82 Long term (current) use of aspirin; R50.9 Fever, unspecified; Z88.0 Allergy status to penicillin; Z91.041 Radiographic dye allergy status; Z87.891 Personal history of nicotine dependence; R31.9 Hematuria, unspecified; J44.9 Chronic obstructive pulmonary disease, unspecified; R09.02 Hypoxemia
CPT/HCPCS: 36415; 71010; 71010-26; 71020; 71020-26; 80048; 80053; 81001; 83735; 83880; 84100; 85025; 87040; 87070; 87086; 87186; 87205; 87804; 94640; 94664; 97161-GP; 97802; 99214; A9270-GY; J0456; J0692; J0696; J1644; J1940; J1956; J2930; J3370; J7050

== ENCOUNTER → 2016-06-02 | Outpatient (CLI) | payer MEDICARE, OTHER | LOC: MW.CHFP 08:00 | PROVIDERS: ATTEND Student in an Organized Health Care Education/Training Program | DX: R50.9 Fever, unspecified (principal); J44.9 Chronic obstructive pulmonary disease, unspecified; R09.02 Hypoxemia | CPT/HCPCS: 99214 ==

== ENCOUNTER → 2016-06-13 | Outpatient (CLI) | payer MEDICARE, OTHER | LOC: MW.CHFP 08:00 | PROVIDERS: ATTEND Student in an Organized Health Care Education/Training Program | DX: K21.9 Gastro-esophageal reflux disease without esophagitis (principal) | CPT/HCPCS: G0463 ==

== ENCOUNTER → 2016-07-25 | Outpatient (CLI) | payer MEDICARE, OTHER | LOC: MW.CHFP 13:19 | PROVIDERS: ATTEND Student in an Organized Health Care Education/Training Program | DX: R53.83 Other fatigue (principal) | CPT/HCPCS: 36415; 80048; 84443; 85025; G0463 ==

== ENCOUNTER 2017-03-02 21:21 | Emergency (ER) | payer MEDICARE, OTHER ==
--- NOTE | 2017-03-02 21:29 | EDM.PDOC ---
ED HPI GENERAL MEDICAL PROBLEM - General Chief Complaint: General Stated Complaint: WEAKNESS Time Seen by Provider: 03/02/17 21:28 Source of Information: Reports: Patient - History of Present Illness INITIAL COMMENTS - FREE TEXT/NARRATIVE: HISTORY AND PHYSICAL: History of present illness: [Patient with COPD home oxygen dependence presents with some anxiousness on arrival and mild general weakness not unusual for the patient. On arrival her O2 sat was 82% on 3 L however she did have her nasal cannula oxygen off to get out of the car and into her room, we did put her on 5 L which bumped her O2 sats up to 97% fairly quickly provided DuoNeb and Solu-Medrol her she did have slight expiratory wheeze on the right and she has been maintaining 94 on 3 L nasal cannula since she is in no distress Seen by her primary care Dr. moreno recently and placed on Valtrex for shingles on the right side of her face with ear involvement no eye involvement she has been having some bad dreams since starting the Valtrex and this is making her anxious Otherwise no fever nausea vomiting chills sweats no chest pain shortness breath headache dizziness or palpitation no bowel or urine symptoms ] Review of systems: As per history of present illness and below otherwise all systems reviewed and negative. Past medical history: As per history of present illness and as reviewed below otherwise noncontributory. Surgical history: As per history of present illness and as reviewed below otherwise noncontributory. Social history: No reported history of drug or alcohol abuse. Family history: As per history of present illness and as reviewed below otherwise noncontributory. Physical exam: HEENT: Atraumatic, normocephalic, pupils reactive, negative for conjunctival pallor or scleral icterus, mucous membranes moist, throat clear, neck supple, nontender, trachea midline. Lungs: Clear to auscultation, breath sounds equal bilaterally, chest nontender. Heart: S1S2, regular, negative for clicks, rubs, or JVD. Abdomen: Soft, nondistended, nontender. Negative for masses or hepatosplenomegaly. Negative for costovertebral tenderness. Pelvis: Stable nontender. Genitourinary: Deferred. Rectal: Deferred. Extremities: Atraumatic, negative for cords or calf pain. Neurovascular unremarkable. Neuro: Awake, alert, oriented. Cranial nerves II through XII unremarkable. Cerebellum unremarkable. Motor and sensory unremarkable throughout. Exam nonfocal. Diagnostics: [Lab as below EKG Chest 1 view ] Therapeutics: [DuoNeb Solu-Medrol 125 mg IV Normal saline 1 25 mL per hour Patient is offered observation admission she refused requests to go home I did prescribe Ativan 0.5 mg by mouth twice a day when necessary #10 no refill Medrol Dosepak Continue current medications as directed Impression: Anxiety Shingles Hypoxia-resolved COPD-home oxygen dependent [Generalized weakness at baseline Definitive disposition and diagnosis as appropriate pending reevaluation and review of above. no pain Pain Score (Numeric/FACES): 0 - Related Data Allergies Allergy/AdvReac Type Severity Reaction Status Date / Time diazepam [From Valium] Allergy Cannot Verified 03/02/17 21:26 Remember levofloxacin [From Levaquin] Allergy Cannot Verified 03/02/17 21:26 Remember Penicillins Allergy Rash Verified 03/02/17 21:26 Sulfa (Sulfonamide Allergy Cannot Verified 03/02/17 21:26 Antibiotics) Remember contrast dye Allergy Cannot Uncoded 03/02/17 21:26 Remember Home Meds: Home Meds Calcium Carbonate/Vitamin D3 [Os-Mil 500+D] 1 tab PO DAILY 01/10/14 [History] Carvedilol [Coreg] 3.125 mg PO BEDTIME 01/10/14 [History] Furosemide [Lasix] 80 mg PO QAM 01/10/14 [History] Losartan Potassium 25 mg PO DAILY 01/10/14 [History] Multivitamin,Stress Formula [Stress Formula] 1 tab PO DAILY 01/10/14 [History] Potassium Chloride 8 meq PO DAILY 01/10/14 [History] Albuterol [Ventolin HFA] 1 - 2 puff INH Q4H PRN 05/28/16 [History] Albuterol/Ipratropium [DuoNeb 3.0-0.5 MG/3 ML] 3 ml INH QID 05/28/16 [History] Aspirin 81 mg PO DAILY 05/28/16 [History] Allopurinol [Zyloprim] 100 mg PO WITHLUNCH 06/02/16 [History] Benzonatate 200 mg PO TID PRN 06/02/16 [History] Clobetasol Propionate [Temovate] 1 applic TOP BID 06/02/16 [History] Fluticasone Propionate [Flovent HFA 110 MCG] 2 puff INH BID 06/02/16 [History] Furosemide [Lasix] 40 mg PO QPM 06/02/16 [History] Ibuprofen [Advil] 200 mg PO TID PRN 06/02/16 [History] Levothyroxine Sodium [Synthroid] 112 mcg PO DAILY 06/02/16 [History] Nitroglycerin [Nitrostat] 0.4 mg SL Q5M PRN 06/02/16 [History] Cephalexin [Keflex] 500 mg PO Q6H #28 capsule 06/06/16 [Rx] predniSONE [Prednisone] 20 mg PO DAILY #18 tablet 06/06/16 [Rx] Past Medical History HEENT History: Reports: Cataract, Impaired Vision Cardiovascular History: Reports: Heart Failure Respiratory History: Reports: COPD Gastrointestinal History: Reports: None Genitourinary History: Reports: Renal Calculus 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 History: Reports: None Psychiatric History: Reports: None Endocrine/Metabolic History: Reports: None Dermatologic History: Reports: None - Past Surgical History HEENT Surgical History: Reports: Cataract Surgery Social & Family History - Family History Family Medical History: Noncontributory - Tobacco Use Smoking Status *Q: Former Smoker Years of Tobacco use: 40 Used Tobacco, but Quit: Yes Month Tobacco Last Used: august Second Hand Smoke Exposure: No - Caffeine Use Caffeine Use: Reports: Coffee - Alcohol Use Days Per Week of Alcohol Use: 0 - Recreational Drug Use Recreational Drug Use: No ED ROS GENERAL - Review of Systems Review Of Systems: ROS reveals no pertinent complaints other than HPI. ED EXAM, GENERAL - Physical Exam Exam: See Below Course - Vital Signs Last Recorded V/S: Last Vital Signs Temp 96.8 F 03/02/17 21:26 Pulse 97 03/02/17 23:06 Resp 20 03/02/17 23:06 BP 147/78 H 03/02/17 23:06 Pulse Ox 96 03/02/17 23:06 - Orders/Labs/Meds Orders: Active Orders 24 hr Category Date Time Status EKG Documentation Completion [RC] STAT Care 03/02/17 21:27 Active RT Aerosol Therapy [RC] ASDIRECTED Care 03/02/17 21:35 Active Chest 1V Frontal [CR] Stat Exams 03/02/17 21:27 Taken Sodium Chloride 0.9% [Normal Saline] 1,000 ml Med 03/02/17 21:45 Active IV STAT Medication Orders Sodium Chloride (Normal Saline) 1,000 mls @ 125 mls/hr IV STAT MARCO Last Admin: 03/02/17 21:44 Dose: 125 mls/hr Labs: Laboratory Tests 03/02/17 03/02/17 03/02/17 Range/Units 21:31 21:31 21:31 WBC 5.08 (4.0-11.0) K/uL RBC 3.90 L (4.30-5.90) M/uL Hgb 12.1 (12.0-16.0) g/dL Hct 38.1 (36.0-46.0) % MCV 97.7 (80.0-98.0) fL MCH 31.0 (27.0-32.0) pg MCHC 31.8 (31.0-37.0) g/dL RDW Std Deviation 49.7 (28.0-62.0) fl RDW Coeff of Jelly 14 (11.0-15.0) % Plt Count 168 (150-400) K/uL MPV 10.00 (7.40-12.00) fL Neut % (Auto) 60.0 (48.0-80.0) % Lymph % (Auto) 22.4 (16.0-40.0) % [place] % (Auto) 15.0 (0.0-15.0) % Eos % (Auto) 2.0 (0.0-7.0) % Baso % (Auto) 0.6 (0.0-1.5) % Neut # (Auto) 3.1 (1.4-5.7) K/uL Lymph # (Auto) 1.1 (0.6-2.4) K/uL [place] # (Auto) 0.8 (0.0-0.8) K/uL Eos # (Auto) 0.1 (0.0-0.7) K/uL Baso # (Auto) 0.0 (0.0-0.1) K/uL Nucleated RBC % 0.0 /100WBC Nucleated RBCs # 0 K/uL INR 0.96 (0.86-1.11) Sodium 136 (136-146) mmol/L Potassium 4.2 (3.5-5.1) mmol/L Chloride 94 L (98-110) mmol/L Carbon Dioxide 29 (21-31) mmol/L BUN 60 H (6.0-23.0) mg/dL Creatinine 1.9 H (0.6-1.5) mg/dL Est Cr Clr Drug Dosing 17.43 mL/min Estimated GFR (MDRD) 25.2 ml/min Glucose 134 H (60-110) mg/dL Calcium 9.8 (8.8-10.8) mg/dL Total Bilirubin 0.4 (0.1-1.5) mg/dL AST 25 (5-40) IU/L ALT 16 (8-54) IU/L Alkaline Phosphatase 65 (40-150) Creatine Kinase 33 (9-236) IU/L CK-MB (CK-2) 1.5 (0-6.6) ng/ml Troponin I < 0.10 (0.0-0.29) NG/ML B-Natriuretic Peptide (<100) PG/ML Total Protein 7.2 (6.0-8.0) g/dL Albumin 4.1 (3.4-4.8) g/dL Globulin 3.1 (2.0-3.5) g/dL Albumin/Globulin Ratio 1.3 (1.3-2.8) TSH 3rd Generation 0.64 (0.47-5.0) uIU/mL Urine Color Urine Appearance Urine pH (5.0-8.0) Ur Specific [place] (1.001-1.035) Urine Protein (NEGATIVE) mg/dL Urine Glucose (UA) (NEGATIVE) mg/dL Urine Ketones (NEGATIVE) mg/dL Urine Occult Blood (NEGATIVE) Urine Nitrite (NEGATIVE) Urine Bilirubin (NEGATIVE) Urine Urobilinogen (<2.0) EU/dL Ur Leukocyte Esterase (NEGATIVE) Urine RBC (0-2/HPF) Urine WBC (0-5/HPF) Ur Epithelial Cells (NONE-FEW) Urine Bacteria (NEGATIVE) 03/02/17 03/02/17 Range/Units 21:31 22:05 WBC (4.0-11.0) K/uL RBC (4.30-5.90) M/uL Hgb (12.0-16.0) g/dL Hct (36.0-46.0) % MCV (80.0-98.0) fL MCH (27.0-32.0) pg MCHC (31.0-37.0) g/dL RDW Std Deviation (28.0-62.0) fl RDW Coeff of Jelly (11.0-15.0) % Plt Count (150-400) K/uL MPV (7.40-12.00) fL Neut % (Auto) (48.0-80.0) % Lymph % (Auto) (16.0-40.0) % [place] % (Auto) (0.0-15.0) % Eos % (Auto) (0.0-7.0) % Baso % (Auto) (0.0-1.5) % Neut # (Auto) (1.4-5.7) K/uL Lymph # (Auto) (0.6-2.4) K/uL [place] # (Auto) (0.0-0.8) K/uL Eos # (Auto) (0.0-0.7) K/uL Baso # (Auto) (0.0-0.1) K/uL Nucleated RBC % /100WBC Nucleated RBCs # K/uL INR (0.86-1.11) Sodium (136-146) mmol/L Potassium (3.5-5.1) mmol/L Chloride (98-110) mmol/L Carbon Dioxide (21-31) mmol/L BUN (6.0-23.0) mg/dL Creatinine (0.6-1.5) mg/dL Est Cr Clr Drug Dosing mL/min Estimated GFR (MDRD) ml/min Glucose (60-110) mg/dL Calcium (8.8-10.8) mg/dL Total Bilirubin (0.1-1.5) mg/dL AST (5-40) IU/L ALT (8-54) IU/L Alkaline Phosphatase (40-150) Creatine Kinase (9-236) IU/L CK-MB (CK-2) (0-6.6) ng/ml Troponin I (0.0-0.29) NG/ML B-Natriuretic Peptide 133 H (<100) PG/ML Total Protein (6.0-8.0) g/dL Albumin (3.4-4.8) g/dL Globulin (2.0-3.5) g/dL Albumin/Globulin Ratio (1.3-2.8) TSH 3rd Generation (0.47-5.0) uIU/mL Urine Color YELLOW Urine Appearance HAZY Urine pH 5.5 (5.0-8.0) Ur Specific [place] 1.020 (1.001-1.035) Urine Protein TRACE (NEGATIVE) mg/dL Urine Glucose (UA) NEGATIVE (NEGATIVE) mg/dL Urine Ketones NEGATIVE (NEGATIVE) mg/dL Urine Occult Blood LARGE H (NEGATIVE) Urine Nitrite NEGATIVE (NEGATIVE) Urine Bilirubin NEGATIVE (NEGATIVE) Urine Urobilinogen 0.2 (<2.0) EU/dL Ur Leukocyte Esterase NEGATIVE (NEGATIVE) Urine RBC 40-45 (0-2/HPF) Urine WBC 0-3 (0-5/HPF) Ur Epithelial Cells OCCASIONAL (NONE-FEW) Urine Bacteria FEW (NEGATIVE) Meds: Medications Generic Name Dose Route Start Last Admin Trade Name Freq PRN Reason Stop Dose Admin Sodium Chloride 1,000 mls @ 125 mls/hr 03/02/17 21:45 03/02/17 21:44 Normal Saline IV 125 mls/hr STAT MARCO Administration Discontinued Medications Generic Name Dose Route Start Last Admin Trade Name Freq PRN Reason Stop Dose Admin Albuterol/Ipratropium 3 ml 03/02/17 21:35 03/02/17 21:43 Duoneb 3.0-0.5 Mg/3 Ml NEB 03/02/17 21:36 3 ml ONETIME ONE Administration Methylprednisolone Sodium Succinate 125 mg 03/02/17 21:35 03/02/17 21:44 Solu-Medrol IVPUSH 03/02/17 21:36 125 mg ONETIME ONE Administration Departure - Departure Time of Disposition: 23:27 Disposition: Home, Self-Care 01 Condition: Good Clinical Impression: Shingles - Discharge Information Referrals: Toni Bennett MD [Primary Care Provider] - Forms: ED Department Discharge Additional Instructions: Medication as prescribed Return if symptoms persist or worsen Follow-up with primary care in 2 weeks sooner as needed The following information is given to patients seen in the emergency department who are being discharged to home. This information is to outline your options for follow-up care. We provide all patients seen in our emergency department with a follow-up referral. The need for follow-up, as well as the timing and circumstances, are variable depending upon the specifics of your emergency department visit. If you don't have a primary care physician on staff, we will provide you with a referral. We always advise you to contact your personal physician following an emergency department visit to inform them of the circumstance of the visit and for follow-up with them and/or the need for any referrals to a consulting specialist. The emergency department will also refer you to a specialist when appropriate. This referral assures that you have the opportunity for follow-up care with a specialist. All of these measure are taken in an effort to provide you with optimal care, which includes your follow-up. Under all circumstances we always encourage you to contact your private physician who remains a resource for coordinating your care. When calling for follow-up care, please make the office aware that this follow-up is from your recent emergency room visit. If for any reason you are refused follow-up, please contact the [facility] emergency department at and asked to speak to the emergency department charge nurse. - My Orders Last 24 Hours: My Active Orders 03/02/17 21:27 EKG Documentation Completion [RC] STAT Chest 1V Frontal [CR] Stat 03/02/17 21:35 RT Aerosol Therapy [RC] ASDIRECTED 03/02/17 21:45 Sodium Chloride 0.9% [Normal Saline] 1,000 ml IV STAT - Assessment/Plan Last 24 Hours: My Active Orders 03/02/17 21:27 EKG Documentation Completion [RC] STAT Chest 1V Frontal [CR] Stat 03/02/17 21:35 RT Aerosol Therapy [RC] ASDIRECTED 03/02/17 21:45 Sodium Chloride 0.9% [Normal Saline] 1,000 ml IV STAT
[2017-03-02] MEDS ORDERED: Albuterol/Ipratropium 3.0-0.5 MG/3 ML Neb Soln NEB ONE (21:35)
[2017-03-02] MEDS ORDERED: methylPREDNISolone Sodium Succinate 125 MG/2 ML SDV IVPUSH ONE (21:35)
[2017-03-02] MEDS ORDERED: Sodium Chloride 0.9% 1,000 ML IV SCH (21:45)
[2017-03-02 22:05] LABS: CHLORIDE,CL 94 mmol/L (98-110); SODIUM,NA 136 mmol/L (136-146)
[2017-03-02 23:49] VITALS: BP 143/73
--- NOTE | 2017-03-06 13:15 | CR ---
EXAM DATE: 03/02/17 PATIENT'S AGE: 86 Patient: DONA VALERA Facility: [place], [place] Site . Site : [id number] Study: XRay Chest [id number]/[id number] 10:41:18 PM Ordering Physician: Brien Almazan Final Report: HISTORY: Weakness. FINDINGS: AP portable chest radiograph is compared with 28 May 2016. There is stable cardiomegaly. Pulmonary vasculature is plump. There is patchy density seen in right and linear density on the left. No pleural effusion is appreciated. IMPRESSION: 1. Mild cardiomegaly with pulmonary venous congestion. 2. Left basilar atelectasis. 3. Patchy density in the right base compatible with atelectasis and/or minimal infiltrate. Dictated by Chloe Garrison MD @ 03/02/2017 11:10:31 PM Dictated by: Chloe Garrison MD @ 03/02/2017 23:10:38 (Electronic Signature) Report Signed by Proxy. PEEWEE
== END 2017-03-02 23:51 | disposition home or self-care (01) ==
LOC: MW.ED 21:21
DX: B02.9 Zoster without complications (principal); I50.9 Heart failure, unspecified; J44.9 Chronic obstructive pulmonary disease, unspecified; Z87.891 Personal history of nicotine dependence; Z79.82 Long term (current) use of aspirin; Z79.899 Other long term (current) drug therapy; Z88.0 Allergy status to penicillin; Z88.2 Allergy status to sulfonamides; Z88.1 Allergy status to other antibiotic agents; Z88.8 Allergy status to other drugs, medicaments and biological substances; Z91.041 Radiographic dye allergy status
CPT/HCPCS: 71010; 80053; 81001; 82550; 82553; 83880; 84443; 84484; 85025; 85610; 87804; 93005; 96361; 96374; 99285; J2930; J7040; 99283

== ENCOUNTER 2017-04-01 20:07 | Emergency (ER) | payer MEDICARE, OTHER ==
--- NOTE | 2017-04-01 21:03 | EDM.PDOC ---
ED HPI GENERAL MEDICAL PROBLEM - General Chief Complaint: Genitourinary Problem Stated Complaint: BLOOD IN URINE Time Seen by Provider: 04/01/17 21:03 Source of Information: Reports: Patient History Limitations: Reports: No Limitations - History of Present Illness INITIAL COMMENTS - FREE TEXT/NARRATIVE: HISTORY AND PHYSICAL: []86-year-old female presenting with blood in her urine Patient has had hematuria for several weeks History of Present Illness: []Patient was treated 6 months ago for UTI and was never rechecked Review of Systems: As per history of present illness and below otherwise all systems reviewed and negative. Past medical history: As per history of present illness and as reviewed below otherwise noncontributory. Surgical history: As per history of present illness and as reviewed below otherwise noncontributory. Social history: No reported history of drug or alcohol abuse. Family history: As per history of present illness and as reviewed below otherwise noncontributory. Physical exam: Alert and oriented elderly female who is using home oxygen. She speaks in full sentences without any shortness of breath HEENT: Atraumatic, normocehpalic, pupils reactive, negative for conjunctival pallor or scleral icterus, mucous membranes moist, throat clear, neck supple, nontender, trachea midline. Lungs: Clear to auscultation, breath sounds equal bilaterally, chest non tender. Heart: S1S2, regular, negative for clicks, rubs, or JVD. Abdomen: Soft, nondistended, nontender. Negative for masses or hepatossplenmegaly. Positive for left costovertebral tenderness. Pelvis: Stable nontender. Genitourinary: Deferred. Rectal: Deferred Extremities: Atraumatic, negative for cords or calf pain. Neurovascular unremarkable. Neuro: Awake, alert, oriented. Cranial nerves II through XII unremarkable. Cerebellum unremarkable. Motor and sensory unremarkable throughout. Exam nonfocal. Diagnostics: [UA urine culture] Therapeutics: []Nitrofurantoin Impression: [Urine tract infection Hematuria] Plan: [Discharged to home Continue with the Macrobid twice daily 10 days Follow-up with your primary care this week] Definitive disposition and diagnosis as appropriate pending reevaluation and review of above. Onset: Gradual Duration: Week(s): Location: Reports: Back - Related Data Allergies Allergy/AdvReac Type Severity Reaction Status Date / Time diazepam [From Valium] Allergy Cannot Verified 03/02/17 21:26 Remember levofloxacin [From Levaquin] Allergy Cannot Verified 03/02/17 21:26 Remember Penicillins Allergy Rash Verified 03/02/17 21:26 Sulfa (Sulfonamide Allergy Cannot Verified 03/02/17 21:26 Antibiotics) Remember contrast dye Allergy Cannot Uncoded 03/02/17 21:26 Remember Home Meds: Home Meds Calcium Carbonate/Vitamin D3 [Os-Mil 500+D] 1 tab PO DAILY 01/10/14 [History] Carvedilol [Coreg] 3.125 mg PO BEDTIME 01/10/14 [History] Furosemide [Lasix] 80 mg PO QAM 01/10/14 [History] Losartan Potassium 25 mg PO DAILY 01/10/14 [History] Multivitamin,Stress Formula [Stress Formula] 1 tab PO DAILY 01/10/14 [History] Potassium Chloride 8 meq PO DAILY 01/10/14 [History] Albuterol [Ventolin HFA] 1 - 2 puff INH Q4H PRN 05/28/16 [History] Albuterol/Ipratropium [DuoNeb 3.0-0.5 MG/3 ML] 3 ml INH QID 05/28/16 [History] Aspirin 81 mg PO DAILY 05/28/16 [History] Allopurinol [Zyloprim] 100 mg PO WITHLUNCH 06/02/16 [History] Benzonatate 200 mg PO TID PRN 06/02/16 [History] Clobetasol Propionate [Temovate] 1 applic TOP BID 06/02/16 [History] Fluticasone Propionate [Flovent HFA 110 MCG] 2 puff INH BID 06/02/16 [History] Furosemide [Lasix] 40 mg PO QPM 06/02/16 [History] Ibuprofen [Advil] 200 mg PO TID PRN 06/02/16 [History] Levothyroxine Sodium [Synthroid] 112 mcg PO DAILY 06/02/16 [History] Nitroglycerin [Nitrostat] 0.4 mg SL Q5M PRN 06/02/16 [History] Cephalexin [Keflex] 500 mg PO Q6H #28 capsule 06/06/16 [Rx] predniSONE [Prednisone] 20 mg PO DAILY #18 tablet 06/06/16 [Rx] Nitrofurantoin Monohyd/M-Cryst [Macrobid 100 mg Capsule] 100 mg PO BID #20 capsule 04/01/17 [Rx] Past Medical History HEENT History: Reports: Cataract, Impaired Vision Cardiovascular History: Reports: Heart Failure Respiratory History: Reports: COPD Gastrointestinal History: Reports: None Genitourinary History: Reports: Renal Calculus 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 History: Reports: None Neurological History: Reports: None Psychiatric History: Reports: None Endocrine/Metabolic History: Reports: None Hematologic History: Reports: None Immunologic History: Reports: None Oncologic (Cancer) History: Reports: None Dermatologic History: Reports: None - Infectious Disease History Infectious Disease History: Reports: Chicken Pox, Shingles - Past Surgical History HEENT Surgical History: Reports: Cataract Surgery Social & Family History - Family History Family Medical History: Noncontributory - Tobacco Use Smoking Status *Q: Former Smoker Years of Tobacco use: 40 Used Tobacco, but Quit: Yes Month Tobacco Last Used: august Second Hand Smoke Exposure: No - Caffeine Use Caffeine Use: Reports: Coffee - Alcohol Use Days Per Week of Alcohol Use: 0 - Recreational Drug Use Recreational Drug Use: No ED ROS GENERAL - Review of Systems Review Of Systems: See Below (See dictation) ED EXAM, RENAL/ - Physical Exam Exam: See Below (See dictation) Course - Orders/Labs/Meds Orders: Active Orders 24 hr Category Date Time Status CULTURE URINE [RM] Stat Lab 04/01/17 21:03 Uncollected Labs: Laboratory Tests 04/01/17 Range/Units 20:35 Urine Color RED Urine Appearance CLOUDY Urine pH 6.5 (5.0-8.0) Ur Specific [place] 1.015 (1.001-1.035) Urine Protein 100 (NEGATIVE) mg/dL Urine Glucose (UA) NEGATIVE (NEGATIVE) mg/dL Urine Ketones TRACE H (NEGATIVE) mg/dL Urine Occult Blood LARGE H (NEGATIVE) Urine Nitrite POSITIVE H (NEGATIVE) Urine Bilirubin MODERATE H (NEGATIVE) Urine Urobilinogen 2.0 H (<2.0) EU/dL Ur Leukocyte Esterase MODERATE (NEGATIVE) Urine RBC TOO NUMBEROUS TO CT H (0-2/HPF) Urine WBC 1-3 (0-5/HPF) Ur Epithelial Cells NOT SEEN (NONE-FEW) Urine Bacteria FEW (NEGATIVE) Urine Other Departure - Departure Time of Disposition: 21:07 Disposition: Home, Self-Care 01 Condition: Good Clinical Impression: UTI, Urinary tract infectious disease, Hematuria syndrome - Discharge Information Prescriptions: Nitrofurantoin Monohyd/M-Cryst [Macrobid 100 mg Capsule] 100 mg PO BID #20 capsule Referrals: Toni Bennett MD [Primary Care Provider] - Forms: ED Department Discharge Additional Instructions: The following information is given to patients seen in the emergency department who are being discharged to home. This information is to outline your options for follow-up care. We provide all patients seen in our emergency department with a follow-up referral. The need for follow-up, as well as the timing and circumstances, are variable depending upon the specifics of your emergency department visit. If you don't have a primary care physician on staff, we will provide you with a referral. We always advise you to contact your personal physician following an emergency department visit to inform them of the circumstance of the visit and for follow-up with them and/or the need for any referrals to a consulting specialist. The emergency department will also refer you to a specialist when appropriate. This referral assures that you have the opportunity for followup care with a specialist. All of these measure are taken in an effort to provide you with optimal care, which includes your followup. Under all circumstances we always encourage you to contact your private physician who remains a resource for coordinating your care. When calling for followup care, please make the office aware that this follow-up is from your recent emergency room visit. If for any reason you are refused follow-up, please contact the [facility] emergency department at and asked to speak to the emergency department charge nurse. You were found to have a urinary tract infection and blood in the urine Due to the multiple allergies that you have will place you on Macrobid twice daily 10 days 1 tablet was given to you in the emergency room prescription will be electronically sent to your pharmacy - My Orders Last 24 Hours: My Active Orders 04/01/17 21:03 CULTURE URINE [RM] Stat - Assessment/Plan Last 24 Hours: My Active Orders 04/01/17 21:03 CULTURE URINE [RM] Stat
[2017-04-01] MEDS ORDERED: Nitrofurantoin Monohydrate/Macrocrystalline 100 MG Cap PO ONE (21:07)
[2017-04-02 03:13] VITALS: BP 117/68
== END 2017-04-01 21:47 | disposition home or self-care (01) ==
LOC: MW.ED 20:07
DX: N39.0 Urinary tract infection, site not specified (principal); Z88.8 Allergy status to other drugs, medicaments and biological substances; Z88.1 Allergy status to other antibiotic agents; Z88.2 Allergy status to sulfonamides; Z91.041 Radiographic dye allergy status; Z79.82 Long term (current) use of aspirin; Z79.899 Other long term (current) drug therapy; Z87.891 Personal history of nicotine dependence
CPT/HCPCS: 81001; 87086; 99283; A9270

== ENCOUNTER 2017-12-03 15:32 | Emergency (ER) | payer MEDICARE, OTHER ==
[2017-12-03 15:44] VITALS: BP 172/74
--- NOTE | 2017-12-03 16:02 | EDM.PDOC ---
ED HPI GENERAL MEDICAL PROBLEM - General Chief Complaint: Lower Extremity Injury/Pain Stated Complaint: RT KNEE HURTS Time Seen by Provider: 12/03/17 15:58 Source of Information: Reports: Patient History Limitations: Reports: No Limitations - History of Present Illness INITIAL COMMENTS - FREE TEXT/NARRATIVE: HISTORY AND PHYSICAL: History of present illness: Patient is an 87-year-old female here with complaint of right knee pain. She states that she fell about 1 week ago landing on the right knee after she tripped on her oxygen tubing. She reports that 3 days ago she was in bed and moved her knee and felt a sudden sharp pain and felt like something moved in her knee. She states it swelled up and bruised after this. She denies any pain at this time and states she does not have any pain when walking on it. She is otherwise in her usual states of health and denies any fevers, chills, nausea, vomiting. Review of systems: As per history of present illness and below otherwise all systems reviewed and negative. Past medical history: As per history of present illness and as reviewed below otherwise noncontributory. Surgical history: As per history of present illness and as reviewed below otherwise noncontributory. Social history: No reported history of drug or alcohol abuse. Family history: As per history of present illness and as reviewed below otherwise noncontributory. Physical exam: General: Patient sitting comfortably in no acute distress and nontoxic appearing HEENT: Atraumatic, normocephalic, pupils reactive, negative for conjunctival pallor or scleral icterus, mucous membranes moist, throat clear, neck supple, nontender, trachea midline. No meningeal signs. Lungs: Clear to auscultation, breath sounds equal bilaterally, chest nontender. Heart: S1S2, regular, negative for clicks, rubs, or overt murmur. Abdomen: Soft, nondistended, nontender. Negative for masses or hepatosplenomegaly. Negative for costovertebral tenderness. Pelvis: Stable nontender. Genitourinary: Deferred. Rectal: Deferred. Extremities: Right knee is swollen just lateral to the patellar tendon. There is ecchymosis at the medial aspect of the knee. There is pain to palpation of the patella. Negative anterior or posterior drawer, negative varus and valgus stress. negative for cords or calf pain. Neurovascular unremarkable. Neuro: Awake, alert, oriented. Cranial nerves II through XII unremarkable. Cerebellum unremarkable. Motor and sensory unremarkable throughout. Exam nonfocal. Notes: Diagnostics: x-ray right knee Therapeutics: None Prescriptions: None Impression: Contusion right knee Plan: 1. Ice, elevate, and motrin as needed 2. Follow up with primary care provider or orthopedic provider 3. Return to ED as needed as discussed Definitive disposition and diagnosis as appropriate pending reevaluation and review of above. right knee Pain Score (Numeric/FACES): 3 - Related Data Allergies Allergy/AdvReac Type Severity Reaction Status Date / Time diazepam [From Valium] Allergy Cannot Verified 12/03/17 15:40 Remember levofloxacin [From Levaquin] Allergy Cannot Verified 12/03/17 15:40 Remember Penicillins Allergy Rash Verified 12/03/17 15:40 Sulfa (Sulfonamide Allergy Cannot Verified 12/03/17 15:40 Antibiotics) Remember contrast dye Allergy Cannot Uncoded 12/03/17 15:40 Remember Home Meds: Home Meds Calcium Carbonate/Vitamin D3 [Os-Mil 500+D] 1 tab PO DAILY 01/10/14 [History] Carvedilol [Coreg] 3.125 mg PO BEDTIME 01/10/14 [History] Furosemide [Lasix] 80 mg PO QAM 01/10/14 [History] Losartan Potassium 25 mg PO DAILY 01/10/14 [History] Multivitamin,Stress Formula [Stress Formula] 1 tab PO DAILY 01/10/14 [History] Potassium Chloride 8 meq PO DAILY 01/10/14 [History] Albuterol [Ventolin HFA] 1 - 2 puff INH Q4H PRN 05/28/16 [History] Albuterol/Ipratropium [DuoNeb 3.0-0.5 MG/3 ML] 3 ml INH QID 05/28/16 [History] Aspirin 81 mg PO DAILY 05/28/16 [History] Allopurinol [Zyloprim] 100 mg PO WITHLUNCH 06/02/16 [History] Benzonatate 200 mg PO TID PRN 06/02/16 [History] Clobetasol Propionate [Temovate Cream] 1 applic TOP BID 06/02/16 [History] Fluticasone Propionate [Flovent HFA 110 MCG] 2 puff INH BID 06/02/16 [History] Ibuprofen [Advil] 200 mg PO TID PRN 06/02/16 [History] Levothyroxine Sodium [Synthroid] 112 mcg PO DAILY 06/02/16 [History] Nitroglycerin [Nitrostat] 0.4 mg SL Q5M PRN 06/02/16 [History] Nitrofurantoin Monohyd/M-Cryst [Macrobid 100 mg Capsule] 100 mg PO BID #20 capsule 04/01/17 [Rx] Phenazopyridine HCl [Pyridium] 100 mg PO TID PRN #9 tablet 04/01/17 [Rx] Past Medical History HEENT History: Reports: Cataract, Impaired Vision Cardiovascular History: Reports: Heart Failure Respiratory History: Reports: COPD Gastrointestinal History: Reports: None Genitourinary History: Reports: Renal Calculus AFTER SCHOOL [employer] History: Reports: Musculoskeletal History: Reports: None Neurological History: Reports: None Psychiatric History: Reports: None Endocrine/Metabolic History: Reports: None Hematologic History: Reports: None Immunologic History: Reports: None Oncologic (Cancer) History: Reports: Bladder Dermatologic History: Reports: Psoriasis - Infectious Disease History Infectious Disease History: Reports: Chicken Pox, Shingles - Past Surgical History HEENT Surgical History: Reports: Cataract Surgery Female Surgical History: Reports: Other (See Below) Other Female Surgeries/Procedures: BCG bladder cancer therapy. Social & Family History - Family History Family Medical History: Noncontributory - Tobacco Use Smoking Status *Q: Former Smoker Used Tobacco, but Quit: Yes Month/Year Tobacco Last Used: 10 Second Hand Smoke Exposure: No - Caffeine Use Caffeine Use: Reports: Coffee - Recreational Drug Use Recreational Drug Use: No Review of Systems - Review of Systems Review Of Systems: ROS reveals no pertinent complaints other than HPI. ED EXAM, GENERAL - Physical Exam Exam: See Below (see dictation) Course - Vital Signs Last Recorded V/S: Last Vital Signs Temp 36.6 C 12/03/17 15:40 Pulse 90 12/03/17 15:40 Resp 18 12/03/17 15:40 BP 172/74 H 12/03/17 15:40 Pulse Ox 95 12/03/17 15:40 - Orders/Labs/Meds Orders: Active Orders 24 hr Category Date Time Status Knee 3V Rt [CR] Stat Exams 12/03/17 15:52 Taken Departure - Departure Time of Disposition: 17:24 Disposition: Home, Self-Care 01 Condition: Good Clinical Impression: Contusion of right knee - Discharge Information Referrals: PCP,None [Primary Care Provider] - Forms: ED Department Discharge Additional Instructions: The following information is given to patients seen in the emergency department who are being discharged to home. This information is to outline your options for follow-up care. We provide all patients seen in our emergency department with a follow-up referral. The need for follow-up, as well as the timing and circumstances, are variable depending upon the specifics of your emergency department visit. If you don't have a primary care physician on staff, we will provide you with a referral. We always advise you to contact your personal physician following an emergency department visit to inform them of the circumstance of the visit and for follow-up with them and/or the need for any referrals to a consulting specialist. The emergency department will also refer you to a specialist when appropriate. This referral assures that you have the opportunity for follow-up care with a specialist. All of these measure are taken in an effort to provide you with optimal care, which includes your follow-up. Under all circumstances we always encourage you to contact your private physician who remains a resource for coordinating your care. When calling for follow-up care, please make the office aware that this follow-up is from your recent emergency room visit. If for any reason you are refused follow-up, please contact the [facility] Emergency Department at and asked to speak to the emergency department charge nurse. [facility] [address] [address] 1. Ice, elevate, and motrin as needed 2. Follow up with primary care provider or orthopedic provider 3. Return to ED as needed as discussed - My Orders Last 24 Hours: My Active Orders 12/03/17 15:52 Knee 3V Rt [CR] Stat - Assessment/Plan Last 24 Hours: My Active Orders 12/03/17 15:52 Knee 3V Rt [CR] Stat
--- NOTE | 2017-12-04 09:53 | CR ---
EXAM DATE: 12/03/17 PATIENT'S AGE: 87 Patient: DONA VALERA Facility: [place], [place] Site . Site : [id number] Study: XRay Knee Right [id number] 4:22:27 PM Ordering Physician: Doctor Sequeira Final Report: INDICATION: Right knee pain. COMPARISON: None available. TECHNIQUE: The right knee was examined with AP, lateral and sunrise views for a total of three views. FINDINGS: There is no sign of fracture or dislocation. There is mild narrowing of the medial joint compartment from minimal primary osteoarthritis. The lateral joint compartment is normal in height. There is no sign of a joint effusion. No soft tissue abnormality is seen. 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 NO OTHER ABNORMALITY SEEN IN THE KNEE. Dictated by James Hamilton MD @ Dec 03 2017 5:18PM (Electronic Signature) Report Signed by Proxy. PEEWEE
== END 2017-12-03 17:33 | disposition home or self-care (01) ==
LOC: MW.ED 15:32
DX: S80.01XA Contusion of right knee, initial encounter (principal); I50.9 Heart failure, unspecified; J44.9 Chronic obstructive pulmonary disease, unspecified; Z77.22 Contact with and (suspected) exposure to environmental tobacco smoke (acute) (chronic); Y93.16 Activity, rowing, canoeing, kayaking, rafting and tubing; Z88.8 Allergy status to other drugs, medicaments and biological substances; Z88.1 Allergy status to other antibiotic agents; Z88.0 Allergy status to penicillin; W22.8XXA Striking against or struck by other objects, initial encounter; Z88.2 Allergy status to sulfonamides; Z79.899 Other long term (current) drug therapy; Z87.891 Personal history of nicotine dependence
CPT/HCPCS: 73562-26-RT; 73562-RT; 99282; 99283